=== PATIENT | female | born 1955 | race Two or more races ===

== ENCOUNTER 2018-10-30 08:59 | Inpatient (IN) | payer MEDICAID ==
[~2018-10-30] VITALS: Ht 157.5 cm; Wt 63.5 kg
--- NOTE | 2018-10-30 09:12 | Emergency Room Report ---
History of Present Illness General Chief Complaint: Dyspnea/Respdistress Source: Patient Present Illness HPI Patient presents with dyspnea. She was transported by EMS. Is a tracheostomy. The patient is complains of also left arm pain at this time. She is extremely anxious and unable to give a full history at the moment. She also had neck surgery. Further history came from her surgeon. Apparently she recently underwent neck resection for thyroid cancer. 2 of her parathyroids were retained. Apparently they were nonfunctional at discharge and she was discharged on calcitonin and calcium. According to the surgeon she has been noncompliant with these medications. She was discharged with a calcium of 7.4. Because of the extensive resection the tracheostomy was less than place. The family denies any fevers or productive cough. She has had some mild phlegm production via the tracheostomy. The patient denies chest pain but does complain of left arm pain. She also feels her hands are stuck in a contracted position that occurred just prior to that respiratory difficulty also. No leg edema or calf pain. No nausea, vomiting, diarrhea or dysuria. No rashes. The neck wounds are healing without difficulty. Allergies: Coded Allergies: No Known Allergies (Unverified , 10/30/18) Patient History Limited by: medical condition Past Medical History: see triage record Past Surgical History: other - Thyroid cancer resection with retention of parathyroid glands x2. Social History: Denies: smoking, alcohol use, drug use Social History Narrative With family Now: No Reviewed Nursing Documentation: PMH: Agreed; PSxH: Agreed Nursing Documentation-PMH Past Medical History: No History, Except For Hx Cancer: Yes - throat Review of Systems All Other Systems: limited Physical Exam Vital Signs Date Time Temp Pulse Resp B/P (MAP) Pulse Ox O2 Delivery O2 Flow Rate FiO2 10/30/18 08:54 98.4 87 20 117/54 99 Trach Collar Sp02 EP Interpretation: reviewed, normal General Appearance: alert, moderate distress Eyes: bilateral eye normal inspection, bilateral eye PERRL, bilateral eye EOMI ENT: normal pharynx Neck: other - Surgical scars, tracheotomy - Patent Respiratory: chest non-tender, lungs clear, normal breath sounds Cardiovascular #1: no edema, tachycardia Cardiovascular #2: 1+ radial (L) Gastrointestinal: non tender, soft, decreased bowel sounds Genitourinary: no CVA tenderness Musculoskeletal: back normal, no calf tenderness Neurologic: alert, umbrella tipper machine III-XII nml as tested, DTRs symmetric, other - Carpal pedal spasms Psychiatric: anxious Skin: other - Surgical scars Procedures Critical Care Time Critical Care Time Total Critical Care Time: 30 min bedside evaluation and treatment excludes procedures (EKG). Reason for critical care: acute dyspnea, symptomatic hypocalcemia, calcium replacement Possible complications: hypotension, hypertension, MD, shock, arrhythmias, metabolic acidosis, end organ damage, respiratory failure. Interventions: ativan, calcium gluconate, discussion with surgeon and admitting MD Course: Patient presented with carpal pedal spasm and respiratory distress. Ativan ordered with improvement. Broad differential. Calcium returns low. Discussion with surgeon reveals probable hypoparathyroidism post operatively. Calcium replacement ordered. Repeat exam with suctioning of tracheostomy. Discussion with family. Tolerating calcium replacement without difficulty. Consultations: nursing staff, EMS, family, neck surgeon, admitting MD, RT Performed by: Dr. Silverman Tolerated well condition = serious Medical Decision Making Diagnostic Impression: Primary Impression: Hypocalcemia Additional Impressions: Status post thyroid cancer resection Tracheostomy in place Hypoparathyroidism Qualified Codes: E20.8 - Other hypoparathyroidism ER Course Patient presents with severe dyspnea with carpopedal spasms and left arm pain. Differential includes acute myocardial infarction, anxiety, electrolyte imbalance amongst others. Is no wheezing and also her O2 sat is 100% on room air. The latter makes pulmonary embolus less likely. The patient will be evaluated with EKG, chest x-ray and labs. The patient will initially be treated with Ativan. There is no bronchospasm at this time and breathing treatments are not indicated. As she starts to feel better more history will be obtained. EKG without injury. CXR clear (trach). Calcium low. Ordering ionized calcium. Improved with ativan. No more pain and muscles have relaxed. She states she was in the hospital 2 weeks ago. After discussion with surgeon the etiology of the hypercalcemia is postsurgical hypoparathyroidism. Ionized calcium is low. (Surgeon: Edin Granger ) 4 g of calcium gluconate is ordered IV. Discussed findings with patient and family and treatment plan. There is minimal phlegm suctioned out of the tracheostomy site. There is no more respiratory distress. Patient improved and admitted to telemetry . Laboratory Tests Test 10/30/18 09:30 White Blood Count 7.1 K/UL (4.8-10.8) Red Blood Count 3.64 M/UL (4.20-5.40) L Hemoglobin 10.6 G/DL (12.0-16.0) L Hematocrit 31.8 % (37.0-47.0) L Mean Corpuscular Volume 87 FL (80-99) Mean Corpuscular Hemoglobin 29.1 PG (27.0-31.0) Mean Corpuscular Hemoglobin Concent 33.3 G/DL (32.0-36.0) Red Cell Distribution Width 14.2 % (11.6-14.8) Platelet Count 306 K/UL (150-450) Mean Platelet Volume 6.9 FL (6.5-10.1) Neutrophils (%) (Auto) 65.0 % (45.0-75.0) Lymphocytes (%) (Auto) 21.6 % (20.0-45.0) Monocytes (%) (Auto) 9.7 % (1.0-10.0) Eosinophils (%) (Auto) 2.5 % (0.0-3.0) Basophils (%) (Auto) 1.1 % (0.0-2.0) Prothrombin Time 11.1 SEC (9.30-11.50) Prothrombin Time INR 1.1 (0.9-1.1) PTT 26 SEC (23-33) Urine Color Pale yellow Urine Appearance Clear Urine pH 8 (4.5-8.0) Urine Specific [place] 1.005 (1.005-1.035) Urine Protein 2+ (NEGATIVE) H Urine Glucose (UA) Negative (NEGATIVE) Urine Ketones Negative (NEGATIVE) Urine Blood Negative (NEGATIVE) Urine Nitrite Negative (NEGATIVE) Urine Bilirubin Negative (NEGATIVE) Urine Urobilinogen Normal MG/DL (0.0-1.0) Urine Leukocyte Esterase 1+ (NEGATIVE) H Urine RBC 0-2 /HPF (0 - 2) Urine WBC 0-2 /HPF (0 - 2) Urine Squamous Epithelial Cells Few /LPF (NONE/OCC) Urine Bacteria Occasional /HPF (NONE) Sodium Level 144 MMOL/L (136-145) Potassium Level 4.1 MMOL/L (3.5-5.1) Chloride Level 107 MMOL/L (98-107) Carbon Dioxide Level 24 MMOL/L (21-32) Anion Gap 13 mmol/L (5-15) Blood Urea Nitrogen 20 mg/dL (7-18) H Creatinine 0.9 MG/DL (0.55-1.30) Estimate Glomerular Filtration Rate > 60 mL/min (>60) Glucose Level 100 MG/DL (74-106) Calcium Level 6.4 MG/DL (8.5-10.1) L Ionized Calcium (Measured) 0.70 mmol/L (1.10-1.35) *L Magnesium Level 2.1 MG/DL (1.8-2.4) Total Bilirubin 0.4 MG/DL (0.2-1.0) Aspartate Amino Transferase (AST) 41 U/L (15-37) H Alanine Aminotransferase (ALT) 44 U/L (12-78) Alkaline Phosphatase 113 U/L (46-116) Total Creatine Kinase 131 U/L (26-308) Troponin I 0.000 ng/mL (0.000-0.056) Pro-B-Type Natriuretic Peptide 60 pg/mL (0-125) Total Protein 7.8 G/DL (6.4-8.2) Albumin 3.6 G/DL (3.4-5.0) Globulin 4.2 g/dL Albumin/Globulin Ratio 0.9 (1.0-2.7) L Urine Opiates Screen Negative (NEGATIVE) Urine Barbiturates Screen Negative (NEGATIVE) Phencyclidine (PCP) Screen Negative (NEGATIVE) Urine Amphetamines Screen Negative (NEGATIVE) Urine Benzodiazepines Screen Negative (NEGATIVE) Urine Cocaine Screen Negative (NEGATIVE) Urine Marijuana (THC) Screen Negative (NEGATIVE) EKG Diagnostic Results Rate: normal Rhythm: NSR ST Segments: no acute changes Rhythm Strip Diag. Results EP Interpretation: yes Rhythm: NSR, no PVC's, no ectopy Chest X-Ray Diagnostic Results Chest X-Ray Diagnostic Results : Chest X-Ray Ordered: Yes # of Views/Limited/Complete: 1 View Indication: Shortness of Breath EP Interpretation: Yes Interpretation: no consolidation, no effusion, no pneumothorax, other - Tracheostomy Impression: Other Electronically Signed by: Electronically signed by Jose Silverman MD Last Vital Signs Date Time Temp Pulse Resp B/P (MAP) Pulse Ox O2 Delivery O2 Flow Rate FiO2 10/30/18 20:38 103 16 93 Trach Collar 6.0 28 10/30/18 16:00 97.4 133/83 (100) Status: improved Disposition: ADMITTED INPATIENT Condition: Serious Jose Silverman MD Oct 30, 2018 09:12
[2018-10-30] MEDS ORDERED: LORazepam Inj 2mg/ml 1ml IV ONE (09:15)
[2018-10-30 09:36] LABS: BASOPHILS % (AUTO) 1.1 % (0.0-2.0); EOSINOPHILS % (AUTO) 2.5 % (0.0-3.0); HEMATOCRIT 31.8 % (37.0-47.0); HEMOGLOBIN 10.6 G/DL (12.0-16.0); LYMPHOCYTES % (AUTO) 21.6 % (20.0-45.0); MEAN CORPUSCULAR VOLUME 87 FL (80-99); MONOCYTES % (AUTO) 9.7 % (1.0-10.0); PLATELET COUNT 306 K/UL (150-450); RED BLOOD COUNT 3.64 M/UL (4.20-5.40); RED CELL DISTRIBUTION WIDTH 14.2 % (11.6-14.8); WHITE BLOOD COUNT 7.1 K/UL (4.8-10.8)
[2018-10-30 09:38] VITALS: BP 115/85
[2018-10-30 09:40] LABS: APPEARANCE,URINE CLEAR; BILIRUBIN, URINE NEGATIVE (NEGATIVE); COLOR,URINE PALE YELLOW; GLUCOSE, URINE (UA) NEGATIVE (NEGATIVE); KETONES,URINE NEGATIVE (NEGATIVE); LEUKOCYTE ESTERASE ,URINE 1+ (NEGATIVE); NITRITE,URINE NEGATIVE (NEGATIVE); PH,URINE 8 (4.5-8.0); PROTEIN,URINE 2+ (NEGATIVE); UROBILINOGEN,URINE NORMAL MG/DL (0.0-1.0)
[2018-10-30 09:42] LABS: INR 1.1 (0.9-1.1)
[2018-10-30 09:45] LABS: ANION GAP 13 mmol/L (5-15); BLOOD UREA NITROGEN 20 mg/dL (7-18); CALCIUM 6.4 MG/DL (8.5-10.1); CARBON DIOXIDE 24 MMOL/L (21-32); CHLORIDE 107 MMOL/L (98-107); CREATININE 0.9 MG/DL (0.55-1.30); POTASSIUM 4.1 MMOL/L (3.5-5.1); SODIUM 144 MMOL/L (136-145)
[2018-10-30 09:58] LABS: ALANINE AMINOTRANSFERASE 44 U/L (12-78); ALBUMIN 3.6 G/DL (3.4-5.0); ALBUMIN/GLOBULIN RATIO 0.9 (1.0-2.7); ALKALINE PHOSPHATASE 113 U/L (46-116); ASPARTATE AMINO TRANSFERASE 41 U/L (15-37); BILIRUBIN,TOTAL 0.4 MG/DL (0.2-1.0); CREATINE KINASE 131 U/L (26-308)
--- NOTE | 2018-10-30 09:59 | Diagnostic Imaging Report ---
Indication: Dyspnea Technique: One view of the chest Comparison: none Findings: Lung pleural and spaces are clear. There is a tracheostomy. Heart size is upper limits of normal Impression: No acute process
[2018-10-30] MEDS ORDERED: NS IV ONE (11:15)
[2018-10-30] MEDS ORDERED: CALCIUM GLUCONATE IV ONE (11:15)
[2018-10-30 11:39] VITALS: BP 114/87
[2018-10-30 13:15] VITALS: BP 118/82
[2018-10-30] MEDS ORDERED: Nitroglycerin Subl 0.4mg tab SL PRN (13:15)
[2018-10-30] MEDS ORDERED: Promethazine/Codeine 5ml UD ORAL PRN (13:15)
[2018-10-30] MEDS ORDERED: Ketorolac 30mg Inj IV PRN (13:15)
[2018-10-30] MEDS ORDERED: Morphine Sulfate 2mg/ml Inj(IV/IM USE ONLY) IVP PRN (13:15)
[2018-10-30] MEDS ORDERED: LORazepam Inj 2mg/ml 1ml IV PRN (13:15)
[2018-10-30] MEDS ORDERED: Piperacillin/Tazobactam 2.25 GM in D5W 55 ML IV SCH (14:00)
[2018-10-30] MEDS: Albuterol/Ipratropium 3ml neb HHN PRN ×2 (14:50→20:26)
[2018-10-30] MEDS: Zosyn 3.375gm q8h **Extended infusion IVPB SCH ×4 (15:45→22:20)
[2018-10-30] MEDS: Solu-MEDROL 125mg Inj IV SCH ×2 (15:45→20:39)
[2018-10-30 16:00] VITALS: BP 133/83
[2018-10-30] MEDS ORDERED: SYNTHROID100 MCG ORAL (19:50)
[2018-10-30] MEDS ORDERED: ROCATROL0.25 MCG ORAL (19:50)
[2018-10-30 20:00] VITALS: BP 146/100
[2018-10-30] MEDS ORDERED: Morphine Sulfate 4mg/ml Inj (IV USE ONLY) IVP PRN (20:15)
[2018-10-30] MEDS: Theophylline ER 100mg ORAL SCH (20:39)
[2018-10-30] MEDS: Heparin 5000 units/ml inj SUBQ SCH (20:41)
[2018-10-31] VITALS: BP 112/77
[2018-10-31] MEDS: Solu-MEDROL 125mg Inj IV SCH ×2 (02:16→08:46)
[2018-10-31 04:00] VITALS: BP 124/82
[2018-10-31] MEDS: Albuterol/Ipratropium 3ml neb HHN PRN (04:30)
[2018-10-31] MEDS: Zosyn 3.375gm q8h **Extended infusion IVPB SCH ×6 (05:16→21:04)
[2018-10-31 07:33] LABS: ALANINE AMINOTRANSFERASE 35 U/L (12-78); ALBUMIN 3.2 G/DL (3.4-5.0); ALBUMIN/GLOBULIN RATIO 0.7 (1.0-2.7); ALKALINE PHOSPHATASE 110 U/L (46-116); ANION GAP 13 mmol/L (5-15); ASPARTATE AMINO TRANSFERASE 25 U/L (15-37); BILIRUBIN,TOTAL 0.4 MG/DL (0.2-1.0); BLOOD UREA NITROGEN 20 mg/dL (7-18); CALCIUM 5.8 MG/DL (8.5-10.1); CARBON DIOXIDE 22 MMOL/L (21-32); CHLORIDE 107 MMOL/L (98-107); CREATININE 0.9 MG/DL (0.55-1.30); POTASSIUM 3.5 MMOL/L (3.5-5.1); SODIUM 142 MMOL/L (136-145)
[2018-10-31 08:00] VITALS: BP 136/85
[2018-10-31] MEDS: Calcitriol 0.25mcg Cap ORAL SCH ×2 (08:45→17:47)
[2018-10-31] MEDS: Theophylline ER 100mg ORAL SCH (08:46)
[2018-10-31] MEDS: Heparin 5000 units/ml inj SUBQ SCH ×2 (08:49→21:05)
[2018-10-31] MEDS ORDERED: Calcitriol 0.25mcg Cap ORAL SCH (09:00)
[2018-10-31 10:06] LABS: PHOSPHORUS 5.4 MG/DL (2.5-4.9)
[2018-10-31] MEDS ORDERED: Calcium Gluconate 10% 2 GM in NS 110 ML IVPB ONE (11:30)
--- NOTE | 2018-10-31 11:46 | Consultation ---
History of Present Illness General Chief Complaint: Dyspnea/Respdistress Present Illness HPI 63 year old female with hx of neck resection for thyroid cancer, s/p tracheostomy brought to ER with CC of dyspnea and left arm pain and cramps. She was extremely anxious and unable to give a full history at the moment. She was discharged recently from hospital after her surgery on calcitonin and calcium. According to the surgeon she has been noncompliant with these medications. The family denies any fevers or productive cough. She has had some mild phlegm production via the tracheostomy. The patient denies chest pain but does complain of left arm pain. She also feels her hands are stuck in a contracted position that occurred just prior to that respiratory difficulty also. Her calcium was critically low and she is admitted to telemetry. Allergies: Coded Allergies: No Known Allergies (Unverified , 10/30/18) Medication History Scheduled Calcitriol (Calcitriol), 0.25 MCG ORAL BID, (Reported) Levothyroxine Sodium* (Synthroid*), 100 MCG ORAL DAILY, (Reported) Patient History Healthcare decision maker Resuscitation status Full Code Advanced Directive on File Past Medical/Surgical History Past Medical/Surgical History: (1) Hypoparathyroidism (2) Tracheostomy in place Review of Systems All Other Systems: negative except mentioned in HPI Physical Exam General Appearance: WD/WN Lines, tubes and drains: peripheral, trach HEENT: normocephalic, anicteric Neck: non-tender, normal alignment Respiratory/Chest: lungs clear, normal breath sounds Breasts: no masses Cardiovascular/Chest: normal peripheral pulses, regular rhythm Last 24 Hour Vital Signs Date Time Temp Pulse Resp B/P (MAP) Pulse Ox O2 Delivery O2 Flow Rate FiO2 10/31/18 09:24 96 Trach Collar 6.0 28 10/31/18 09:24 96 18 Trach Collar 6.0 28 10/31/18 09:24 Trach Collar 6.0 28 10/31/18 09:00 Room Air 10/31/18 08:00 107 10/31/18 08:00 97.9 116 18 136/85 (102) 97 10/31/18 04:53 92 16 94 Trach Collar 6.0 28 10/31/18 04:30 83 16 93 Trach Collar 6.0 28 10/31/18 04:18 94 10/31/18 04:00 98.2 94 19 124/82 (96) 95 10/31/18 00:30 Trach Collar 6.0 28 10/31/18 00:30 96 Trach Collar 6.0 28 10/31/18 00:00 98.1 101 18 112/77 (89) 94 10/30/18 23:52 94 10/30/18 22:38 Room Air 10/30/18 20:38 103 16 93 Trach Collar 6.0 28 10/30/18 20:26 104 16 94 Trach Collar 6.0 28 10/30/18 20:00 97.9 103 18 146/100 (115) 96 10/30/18 19:50 95 Trach Collar 6.0 28 10/30/18 19:50 Trach Collar 6.0 28 10/30/18 19:50 102 16 Trach Collar 6.0 28 10/30/18 19:29 109 10/30/18 16:00 97.4 100 18 133/83 (100) 96 10/30/18 15:43 97 10/30/18 15:05 96 Trach Collar 6.0 28 10/30/18 15:05 Trach Collar 6.0 28 10/30/18 15:01 99 20 99 Trach Collar 6.0 28 10/30/18 14:53 97 22 98 Room Air 21 10/30/18 14:53 94 20 Trach Collar 6.0 28 10/30/18 13:34 Trach Collar 10/30/18 13:24 92 10/30/18 13:15 98.2 92 18 118/82 (94) 97 10/30/18 13:00 98.2 75 20 114/87 98 Room Air Intake and Output 10/30/18 10/31/18 18:59 06:59 Intake Total 240 ml 110 ml Balance 240 ml 110 ml Intake Oral 240 ml IV Total 110 ml # Voids 1 1 Laboratory Tests Test 10/31/18 05:25 Sodium Level 142 MMOL/L (136-145) Potassium Level 3.5 MMOL/L (3.5-5.1) Chloride Level 107 MMOL/L (98-107) Carbon Dioxide Level 22 MMOL/L (21-32) Anion Gap 13 mmol/L (5-15) Blood Urea Nitrogen 20 mg/dL (7-18) H Creatinine 0.9 MG/DL (0.55-1.30) Estimat Glomerular Filtration Rate > 60 mL/min (>60) Glucose Level 167 MG/DL (74-106) H Calcium Level 5.8 MG/DL (8.5-10.1) *L Calcium (Send out) Pending Phosphorus Level 5.4 MG/DL (2.5-4.9) H Magnesium Level 1.8 MG/DL (1.8-2.4) Total Bilirubin 0.4 MG/DL (0.2-1.0) Aspartate Amino Transf (AST/SGOT) 25 U/L (15-37) Alanine Aminotransferase (ALT/SGPT) 35 U/L (12-78) Alkaline Phosphatase 110 U/L (46-116) Total Protein 7.6 G/DL (6.4-8.2) Albumin 3.2 G/DL (3.4-5.0) L Globulin 4.4 g/dL Albumin/Globulin Ratio 0.7 (1.0-2.7) L Thyroid Stimulating Hormone (TSH) 5.453 uiU/mL (0.358-3.740) Free Thyroxine 1.10 NG/DL (0.76-1.46) Parathyroid Hormone (Intact) Pending Height (Feet): 5 Height (Inches): 2.00 Weight (Pounds): 140 Medications Current Medications Medications (Trade) Dose Ordered Sig/Rico Route PRN Reason Start Time Stop Time Status Last Admin Dose Admin Albuterol/ Ipratropium (Albuterol/ Ipratropium) 3 ml Q4H PRN HHN dyspnea 10/30/18 13:15 11/04/18 13:14 10/31/18 04:30 Calcitriol (Rocatrol) 0.5 mcg BID ORAL 10/31/18 09:00 11/30/18 08:59 10/31/18 08:45 Calcium Carbonate (Os-Den) 2,500 mg THREE TIMES A DAY ORAL 10/31/18 09:00 11/30/18 08:59 10/31/18 08:46 Calcium Gluconate 1 gm/Sodium Chloride 120 ml @ 240 mls/hr Q6HR IVPB 10/31/18 18:00 11/30/18 11:59 Calcium Gluconate 2 gm/Sodium Chloride 130 ml @ 130 mls/hr ONCE ONCE IVPB 10/31/18 11:30 10/31/18 12:29 10/31/18 11:04 Dextrose (Dextrose 50%) 25 ml Q30M PRN IV Hypoglycemia 10/30/18 13:15 11/29/18 13:14 Dextrose (Dextrose 50%) 50 ml Q30M PRN IV Hypoglycemia 10/30/18 13:15 11/29/18 13:14 Heparin Sodium (Porcine) (Heparin 5000 units/ml) 5,000 units EVERY 12 HOURS SUBQ 10/30/18 21:00 11/29/18 20:59 10/31/18 08:49 Levothyroxine Sodium (Synthroid) 100 mcg ACBREAKFAST ORAL 10/31/18 06:30 11/30/18 06:29 10/31/18 06:23 Lorazepam (Ativan 2mg/ml 1ml) 0.5 mg Q4H PRN IV For Anxiety 10/30/18 13:15 11/06/18 13:14 Methylprednisolone Sodium Succinate (Solu-MEDROL) 60 mg Q6H IV 10/30/18 14:00 11/29/18 13:59 10/31/18 08:46 Morphine Sulfate (Morphine Sulfate) 2 mg Q4H PRN IVP severe pain 7-10 10/30/18 20:15 11/06/18 13:14 Nitroglycerin (Ntg) 0.4 mg Q5M X 3 DOSES PRN SL Prn Chest Pain 10/30/18 13:15 11/29/18 13:14 Ondansetron HCl (Zofran) 4 mg Q6H PRN IVP Nausea & Vomiting 10/30/18 13:15 11/29/18 13:14 Piperacillin Sod/ Tazobactam Sod 3.375 gm/Sodium Chloride 110 ml @ 27.5 mls/hr EVERY 8 HOURS IVPB 10/30/18 14:00 11/04/18 13:59 10/31/18 05:16 Promethazine HCl/ Codeine (Phenergan with Codeine) 5 ml Q6H PRN ORAL cough 10/30/18 13:15 11/29/18 13:14 Temazepam (Restoril) 15 mg HSPRN PRN ORAL Insomnia 10/30/18 13:15 11/06/18 13:14 Theophylline (Abel-Dur) 100 mg EVERY 12 HOURS ORAL 10/30/18 21:00 11/29/18 20:59 10/31/18 08:46 Assessment/Plan Problem List: (1) Hypocalcemia ICD Codes: E83.51 - Hypocalcemia SNOMED: 4801311 (2) Tracheostomy in place ICD Codes: Z93.0 - Tracheostomy status SNOMED: 019095806 (3) Hypoparathyroidism ICD Codes: E20.9 - Hypoparathyroidism, unspecified SNOMED: 93825488 Qualifiers: Qualified Codes: E20.8 - Other hypoparathyroidism Diagnosis [place] I: Ca supplement Nephrology to see endocrinology to see symptomatic treatment Jorge Borjas MD Oct 31, 2018 11:46
--- NOTE | 2018-10-31 12:01 | Consultation ---
Consult Note Consult Note asked to eval for low Ca Chief Complaint: Dyspnea/Respdistress HPI Patient presents with dyspnea. She was transported by EMS. Is a tracheostomy. The patient is complains of also left arm pain at this time. She is extremely anxious and unable to give a full history at the moment. She also had neck surgery. Further history came from her surgeon. Apparently she recently underwent neck resection for thyroid cancer. 2 of her parathyroids were retained. Apparently they were nonfunctional at discharge and she was discharged on calcitonin and calcium. According to the surgeon she has been noncompliant with these medications. She was discharged with a calcium of 7.4. Because of the extensive resection the tracheostomy was less than place. The family denies any fevers or productive cough. She has had some mild phlegm production via the tracheostomy. The patient denies chest pain but does complain of left arm pain. She also feels her hands are stuck in a contracted position that occurred just prior to that respiratory difficulty also. No leg edema or calf pain. No nausea, vomiting, diarrhea or dysuria. No rashes. The neck wounds are healing without difficulty. No Known Allergies (Unverified , 10/30/18) Limited by: medical condition Past Medical History: see triage record Past Surgical History: other - Thyroid cancer resection with retention of parathyroid glands x2. Social History: Denies: smoking, alcohol use, drug use Social History Narrative With family Now: No Reviewed Nursing Documentation: PMH: Agreed; PSxH: Agreed Past Medical History: No History, Except For Hx Cancer: Yes - throat examined data reviewed Assessment/Plan s/p Throat surgery for thyroid cancer HypoParathyroidism HypoCalcemia Tracheostomy in place Anemia IV Den gluc PO Ca PO Vit D 25 & 1,25 monitor Ca Phos Mag per orders Franklin Gardner MD Oct 31, 2018 12:01
[2018-10-31 12:24] VITALS: BP 127/80
[2018-10-31] MEDS ORDERED: Vitamin D 50,000 units cap ORAL SCH (13:00)
--- NOTE | 2018-10-31 14:13 | Consultation ---
History of Present Illness General Date patient seen: Oct 31, 2018 Reason for Hospitalization: Dyspnea/Respdistress Present Illness HPI 63 year old female with multiple medical comorbidities, hx of tracheostomy, hx of recent thyroidectomy presented with SOB and respiratory insufficiency. states weak and shaking. no n/v/f/c. per report, she had total thyroidectomy with removal of 2 parathyroids and 2 post op non functional thyroids. has been or oral calcium supplementation but non compliant with meds. became hypocalcemic. on admission calcium levels low. was given IV calcium and states feels much better now. surgery called to evaluate and assist with care. patient seen, chart reviewed, patient examined. family at bedside Allergies: Coded Allergies: No Known Allergies (Unverified , 10/30/18) Medication History Scheduled Calcitriol (Calcitriol), 0.25 MCG ORAL BID, (Reported) Levothyroxine Sodium* (Synthroid*), 100 MCG ORAL DAILY, (Reported) Patient History History Provided By: Patient, Medical Record, PMD Healthcare decision maker Resuscitation status Full Code Advanced Directive on File Past Medical/Surgical History Past Medical/Surgical History: (1) Hypoparathyroidism (2) Tracheostomy in place (3) Hypocalcemia Review of Systems Review of Symptoms General ROS: no weight loss or fever Psychological ROS: no depression or mood changes, no memory loss Ophthalmic ROS: no visual changes or eye irritation ENT ROS: no nasal congestion, hearing loss, dizziness Allergy and Immunology ROS: no allergic symptoms or urticaria Hematological and Lymphatic ROS: no swollen glands, unusual bleeding or bruising Endocrine ROS: no polyuria, polydipsia, weight changes, temperature intolerance Respiratory ROS: no cough, shortness of breath, or wheezing Cardiovascular ROS: no chest pain or dyspnea on exertion Gastrointestinal ROS: denies abdominal pain, no bright red blood in stool. Musculoskeletal ROS: no myalgias or arthralgias Neurological ROS: no TIA or stroke symptoms Dermatological ROS: no new or changing skin lesions, rashes or pruritis Physical Exam Physical Exam General appearance: alert, cooperative, no distress, appears stated age Head: Normocephalic, without obvious abnormality, atraumatic Eyes: conjunctivae/corneas clear. PERRL, EOM's intact. Fundi benign Throat: Lips, mucosa, and tongue normal. Teeth and gums normal Neck: supple, symmetrical, trachea midline with trach in place. superior to that here is a healing recent thyroidectomy incision noted with vickie in place , no adenopathy, thyroid: not enlarged, symmetric, no tenderness/mass/nodules, no carotid bruit and no JVD Lungs: clear to auscultation bilaterally Heart: regular rate and rhythm, S1, S2 normal, no murmur, click, rub or gallop Abdomen: soft, non-tender. Bowel sounds normal. No masses, no organomegaly Extremities: extremities normal, atraumatic, no cyanosis or edema Pulses: 2+ and symmetric Skin: Skin color, texture, turgor normal. No rashes or lesions Neurologic: Grossly normal Last 24 Hour Vital Signs Date Time Temp Pulse Resp B/P (MAP) Pulse Ox O2 Delivery O2 Flow Rate FiO2 10/31/18 13:05 Trach Collar 6.0 28 10/31/18 13:05 96 Trach Collar 6.0 28 10/31/18 12:24 97.9 92 20 127/80 (96) 96 10/31/18 12:00 89 10/31/18 09:24 96 Trach Collar 6.0 28 10/31/18 09:24 96 18 Trach Collar 6.0 28 10/31/18 09:24 Trach Collar 6.0 28 10/31/18 09:00 Room Air 10/31/18 08:00 107 10/31/18 08:00 97.9 116 18 136/85 (102) 97 10/31/18 06:45 96 Trach Collar 6.0 28 10/31/18 06:45 Trach Collar 6.0 28 10/31/18 04:53 92 16 94 Trach Collar 6.0 28 10/31/18 04:30 83 16 93 Trach Collar 6.0 28 10/31/18 04:18 94 10/31/18 04:00 98.2 94 19 124/82 (96) 95 10/31/18 00:30 Trach Collar 6.0 28 10/31/18 00:30 96 Trach Collar 6.0 28 10/31/18 00:00 98.1 101 18 112/77 (89) 94 10/30/18 23:52 94 10/30/18 22:38 Room Air 10/30/18 20:38 103 16 93 Trach Collar 6.0 28 10/30/18 20:26 104 16 94 Trach Collar 6.0 28 10/30/18 20:00 97.9 103 18 146/100 (115) 96 10/30/18 19:50 95 Trach Collar 6.0 28 10/30/18 19:50 Trach Collar 6.0 28 10/30/18 19:50 102 16 Trach Collar 6.0 28 10/30/18 19:29 109 10/30/18 16:00 97.4 100 18 133/83 (100) 96 10/30/18 15:43 97 10/30/18 15:05 96 Trach Collar 6.0 28 10/30/18 15:05 Trach Collar 6.0 28 10/30/18 15:01 99 20 99 Trach Collar 6.0 28 10/30/18 14:53 97 22 98 Room Air 21 10/30/18 14:53 94 20 Trach Collar 6.0 28 Intake and Output 10/30/18 10/31/18 19:00 07:00 Intake Total 240 ml 110 ml Balance 240 ml 110 ml Intake Oral 240 ml IV Total 110 ml # Voids 1 1 Laboratory Tests Test 10/31/18 05:25 Sodium Level 142 MMOL/L (136-145) Potassium Level 3.5 MMOL/L (3.5-5.1) Chloride Level 107 MMOL/L (98-107) Carbon Dioxide Level 22 MMOL/L (21-32) Anion Gap 13 mmol/L (5-15) Blood Urea Nitrogen 20 mg/dL (7-18) H Creatinine 0.9 MG/DL (0.55-1.30) Estimat Glomerular Filtration Rate > 60 mL/min (>60) Glucose Level 167 MG/DL (74-106) H Calcium Level 5.8 MG/DL (8.5-10.1) *L Calcium (Send out) Pending Phosphorus Level 5.4 MG/DL (2.5-4.9) H Magnesium Level 1.8 MG/DL (1.8-2.4) Total Bilirubin 0.4 MG/DL (0.2-1.0) Aspartate Amino Transf (AST/SGOT) 25 U/L (15-37) Alanine Aminotransferase (ALT/SGPT) 35 U/L (12-78) Alkaline Phosphatase 110 U/L (46-116) Total Protein 7.6 G/DL (6.4-8.2) Albumin 3.2 G/DL (3.4-5.0) L Globulin 4.4 g/dL Albumin/Globulin Ratio 0.7 (1.0-2.7) L Thyroid Stimulating Hormone (TSH) 5.453 uiU/mL (0.358-3.740) Free Thyroxine 1.10 NG/DL (0.76-1.46) Parathyroid Hormone (Intact) Pending Height (Feet): 5 Height (Inches): 2.00 Weight (Pounds): 140 Medications Current Medications Medications (Trade) Dose Ordered Sig/Rico Route PRN Reason Start Time Stop Time Status Last Admin Dose Admin Albuterol/ Ipratropium (Albuterol/ Ipratropium) 3 ml Q4H PRN HHN dyspnea 10/30/18 13:15 11/04/18 13:14 10/31/18 04:30 Calcitriol (Rocatrol) 0.5 mcg BID ORAL 10/31/18 09:00 11/30/18 08:59 10/31/18 08:45 Calcium Carbonate (Os-Den) 2,500 mg THREE TIMES A DAY ORAL 10/31/18 09:00 11/30/18 08:59 10/31/18 08:46 Calcium Gluconate 1 gm/Sodium Chloride 120 ml @ 240 mls/hr Q6HR IVPB 10/31/18 18:00 11/30/18 11:59 Dextrose (Dextrose 50%) 25 ml Q30M PRN IV Hypoglycemia 10/30/18 13:15 11/29/18 13:14 Dextrose (Dextrose 50%) 50 ml Q30M PRN IV Hypoglycemia 10/30/18 13:15 11/29/18 13:14 Ergocalciferol (Drisdol) 50,000 intlu QWEEK ORAL 10/31/18 13:00 11/30/18 12:59 Heparin Sodium (Porcine) (Heparin 5000 units/ml) 5,000 units EVERY 12 HOURS SUBQ 10/30/18 21:00 11/29/18 20:59 10/31/18 08:49 Levothyroxine Sodium (Synthroid) 100 mcg ACBREAKFAST ORAL 10/31/18 06:30 11/30/18 06:29 10/31/18 06:23 Lorazepam (Ativan 2mg/ml 1ml) 0.5 mg Q4H PRN IV For Anxiety 10/30/18 13:15 11/06/18 13:14 Methylprednisolone Sodium Succinate (Solu-MEDROL) 60 mg DAILY IV 11/01/18 09:00 11/29/18 13:59 Morphine Sulfate (Morphine Sulfate) 2 mg Q4H PRN IVP severe pain 7-10 10/30/18 20:15 11/06/18 13:14 Nitroglycerin (Ntg) 0.4 mg Q5M X 3 DOSES PRN SL Prn Chest Pain 10/30/18 13:15 11/29/18 13:14 Ondansetron HCl (Zofran) 4 mg Q6H PRN IVP Nausea & Vomiting 10/30/18 13:15 11/29/18 13:14 Piperacillin Sod/ Tazobactam Sod 3.375 gm/Sodium Chloride 110 ml @ 27.5 mls/hr EVERY 8 HOURS IVPB 10/30/18 14:00 11/04/18 13:59 10/31/18 05:16 Promethazine HCl/ Codeine (Phenergan with Codeine) 5 ml Q6H PRN ORAL cough 10/30/18 13:15 11/29/18 13:14 Temazepam (Restoril) 15 mg HSPRN PRN ORAL Insomnia 10/30/18 13:15 11/06/18 13:14 Assessment/Plan Problem List: (1) Hypoparathyroidism Assessment & Plan: s/p thyroidectomy [address] 2 remain per report but non functional thus far presented with symptomatic hypocalcemia. given replacement and symptoms improved check calcium very few hrs replace with IV for now and oral as tolerated will follow with recs ICD Codes: E20.9 - Hypoparathyroidism, unspecified SNOMED: 20510864 Qualifiers: Qualified Codes: E20.8 - Other hypoparathyroidism (2) Tracheostomy in place ICD Codes: Z93.0 - Tracheostomy status SNOMED: 165887897 (3) Hypocalcemia ICD Codes: E83.51 - Hypocalcemia SNOMED: 6425908 Selvin Sanchez Oct 31, 2018 14:13
[2018-10-31 16:00] VITALS: BP 123/76
--- NOTE | 2018-10-31 16:02 | Cardiology Report ---
APPROVED REPORT EKG Measurement Heart [id number] MI [id number] Normal sinus rhythm Normal ECG
--- NOTE | 2018-10-31 17:45 | Consultation ---
DATE OF CONSULTATION: 10/31/2018 ENDOCRINOLOGY CONSULTATION CONSULTING PHYSICIAN: Isaac Parker M.D. REFERRING PHYSICIAN: Omer Matamoros D.O. REASON FOR CONSULTATION: Hypocalcemia. HISTORY OF PRESENT ILLNESS: The patient is a 63-year-old female with a history of thyroid cancer, status post thyroidectomy and tracheostomy at outside Hospital a couple of weeks ago. The patient was supposed to be on calcium supplement and calcitriol. According to the surgeon, who spoke with the ER physician, she was noncompliant and came with symptomatic hypocalcemia. The patient has been given IV calcium gluconate with some improvement. I was called to manage hypocalcemia. The patient is having productive cough without any fever. PAST MEDICAL HISTORY: Thyroid cancer, unknown type. PAST SURGICAL HISTORY: Total thyroidectomy with retention of the two parathyroid glands. SOCIAL HISTORY: No smoking, alcohol, or drug use. FAMILY HISTORY: Noncontributory. REVIEW OF SYSTEMS: As per HPI. MEDICATIONS: Reviewed and reconciled. LABORATORY VALUES: Sodium 144, potassium 4.1, chloride 107, bicarbonate 24, BUN 20, creatinine 0.9, calcium of 6.4. PHYSICAL EXAMINATION: GENERAL: She is awake. VITAL SIGNS: Temperature 98.2, pulse rate of 94, blood pressure 124/82, respiratory rate of 19. HEENT: Pupils are equal and reactive to light. Sclerae anicteric. NECK: Tracheostomy in place. HEART: Regular. LUNGS: Clear. ABDOMEN: Positive bowel sounds. EXTREMITIES: No clubbing, cyanosis, or edema. DIAGNOSES: 1. Postsurgical hypoparathyroidism. 2. Severe hypocalcemia. 3. Postsurgical hypothyroidism. 4. History of thyroid cancer of unknown type. PLAN: 1. Increase the calcitriol 0.25 to 0.5 mcg b.i.d. 2. Add oral calcium 2500 mg three times a day. 3. Continue levothyroxine 100 mcg in the morning on empty stomach, separate from calcium and other medications. 4. follow serum calcium. 5. Check PTH. 6. Check TSH and free T4. 7. Further adjustment according to the results. I will follow the patient during hospital stay. Thank you, Dr. Matamoros, for the courtesy of this consultation. Isaac Parker M.D. DR: HARPER JOB#: [id number] CC: KAILASH
[2018-10-31] MEDS: Calcium Gluconate 10% 1 GM in NS 110 ML IVPB SCH ×2 (17:47→23:33)
[2018-10-31] MEDS ORDERED: Calcium Gluconate 10% 1 GM in NS 110 ML IVPB SCH (18:00)
[2018-10-31 20:00] VITALS: BP 131/73
--- NOTE | 2018-10-31 20:00 | History and Physical Report ---
DATE OF ADMISSION: 10/30/2018 TIME SEEN: On 10/31/2018 at 2 p.m. CONSULTANTS: 1. Franklin Gardner M.D. 2. Jorge Borjas M.D. 3. Isaac Parker M.D. 4. Selvin Sanchez M.D. 5. Dr. Rehman. CHIEF COMPLAINT: Weakness, hypocalcemia, status post thyroid cancer resection. BRIEF HISTORY: This is a 63-year-old female, who lives at home and presents with increased weakness, was found to be hypocalcemic, admitted to telemetry floor for further care. Currently, calm, slight general pain, trach aerosol, no complaint. REVIEW OF SYSTEMS: No chest pain. Slight short of breath. No nausea, vomiting, or diarrhea. PAST MEDICAL HISTORY: Includes thyroid cancer, hypertension. PAST SURGICAL HISTORY: Recent thyroid resection and trach. MEDICATIONS: Include methylprednisolone, calcium, ergocalciferol, levothyroxine, heparin, theophylline, Zosyn, lorazepam, morphine, Zofran. ALLERGIES: Denies. SOCIAL HISTORY: No smoking. No alcohol. No intravenous drug abuse. FAMILY HISTORY: Noncontributory. PHYSICAL EXAMINATION: GENERAL: Calm in bed, oriented x3, slight short of breath with trach aerosol. VITAL SIGNS: Temperature is 97 degrees, pulse 92, respiratory rate 20, blood pressure 127/80. HEENT: Trach in place. CARDIOVASCULAR: No murmur. LUNGS: Distant and clear. ABDOMEN: Bowel sounds positive. Nontender. Nondistended. EXTREMITIES: No cyanosis, clubbing, or edema NEUROLOGIC: The patient moves all extremities, slightly weak. LABORATORY AND DIAGNOSTIC DATA: Labs at this time show hemoglobin and hematocrit 10.6/31. Calcium 5.8, BUN 20, glucose 167. TSH 5.45. INR is 1.1. Urine toxicology is negative. Urinalysis, 1+ leukocyte esterase. ASSESSMENT: 1. Hypocalcemia. 2. Anemia. 3. UTI. 4. Status post thyroid cancer resection. 5. Hypertension. PLAN: 1. Blood pressure and pain control. 2. Dietary to follow. 3. O2, pulmonary treatment, and trach care. 4. Replace calcium as per Nephrology. 5. Endocrine followup. 6. Antibiotics per Infectious Diseases. 7. We will continue to follow this patient. Omer Matamoros D.O. DR: Sammie JOB#: [id number] CC:
[2018-11-01] VITALS: BP 131/74
[2018-11-01 04:00] VITALS: BP 112/71
[2018-11-01] MEDS: Zosyn 3.375gm q8h **Extended infusion IVPB SCH ×2 (06:13)
[2018-11-01] MEDS: Calcium Gluconate 10% 1 GM in NS 110 ML IVPB SCH ×4 (06:14→23:21)
--- NOTE | 2018-11-01 06:31 | General Progress Note ---
Assessment/Plan Problem List: (1) Post-surgical hypothyroidism ICD Codes: E89.0 - Postprocedural hypothyroidism SNOMED: 15344725 (2) Post-surgical hypoparathyroidism ICD Codes: E89.2 - Postprocedural hypoparathyroidism SNOMED: 00645339 (3) Thyroid cancer ICD Codes: C73 - Malignant neoplasm of thyroid gland SNOMED: 162920066 (4) Tracheostomy in place ICD Codes: Z93.0 - Tracheostomy status SNOMED: 195294322 (5) Hypocalcemia ICD Codes: E83.51 - Hypocalcemia SNOMED: 5063165 Assessment/Plan: TSH is elevated - increase Levothyroxine to 125 mcg qam continue Calcitriol 0.5 mcg bid + Vit D + CaCO3 2500 mg bid follow serum Ca level Subjective ROS Limited/Unobtainable: Yes Allergies: Coded Allergies: No Known Allergies (Unverified , 10/30/18) Subjective events noted am labs pending Objective Last 24 Hour Vital Signs Date Time Temp Pulse Resp B/P (MAP) Pulse Ox O2 Delivery O2 Flow Rate FiO2 11/01/18 04:00 97.4 75 19 112/71 (85) 95 11/01/18 01:09 96 Trach Collar 6.0 28 11/01/18 01:09 Trach Collar 6.0 28 11/01/18 00:00 98.5 74 18 131/74 (93) 96 10/31/18 21:00 Trach Collar 10/31/18 20:00 97.7 84 19 131/73 (92) 95 10/31/18 20:00 89 10/31/18 19:06 96 Trach Collar 6.0 28 10/31/18 19:06 58 18 Trach Collar 6.0 28 10/31/18 19:06 Trach Collar 6.0 28 10/31/18 16:00 91 10/31/18 16:00 97.6 88 18 123/76 (92) 96 10/31/18 13:05 Trach Collar 6.0 28 10/31/18 13:05 96 Trach Collar 6.0 28 10/31/18 12:24 97.9 92 20 127/80 (96) 96 10/31/18 12:00 89 10/31/18 09:24 96 Trach Collar 6.0 28 10/31/18 09:24 96 18 Trach Collar 6.0 28 10/31/18 09:24 Trach Collar 6.0 28 10/31/18 09:00 Room Air 10/31/18 08:00 107 10/31/18 08:00 97.9 116 18 136/85 (102) 97 10/31/18 06:45 96 Trach Collar 6.0 28 10/31/18 06:45 Trach Collar 6.0 28 Intake and Output 10/31/18 11/01/18 19:00 07:00 Intake Total 360 ml 230 ml Balance 360 ml 230 ml Intake Oral 360 ml IV Total 230 ml # Voids 3 2 Height (Feet): 5 Height (Inches): 2.00 Weight (Pounds): 140 General Appearance: no apparent distress Neck: other - trach Cardiovascular: normal rate Respiratory/Chest: decreased breath sounds Abdomen: normal bowel sounds Pelvis: normal external exam Objective Current Medications Medications (Trade) Dose Ordered Sig/Rico Route PRN Reason Start Time Stop Time Status Last Admin Dose Admin Albuterol/ Ipratropium (Albuterol/ Ipratropium) 3 ml Q4H PRN HHN dyspnea 10/30/18 13:15 11/04/18 13:14 10/31/18 04:30 Calcitriol (Rocatrol) 0.5 mcg BID ORAL 10/31/18 09:00 11/30/18 08:59 10/31/18 17:47 Calcium Carbonate (Os-Den) 2,500 mg THREE TIMES A DAY ORAL 10/31/18 09:00 11/30/18 08:59 10/31/18 17:47 Calcium Gluconate 1 gm/Sodium Chloride 120 ml @ 240 mls/hr Q6HR IVPB 10/31/18 18:00 11/30/18 11:59 11/01/18 06:14 Dextrose (Dextrose 50%) 25 ml Q30M PRN IV Hypoglycemia 10/30/18 13:15 11/29/18 13:14 Dextrose (Dextrose 50%) 50 ml Q30M PRN IV Hypoglycemia 10/30/18 13:15 11/29/18 13:14 Ergocalciferol (Drisdol) 50,000 intlu QWEEK ORAL 10/31/18 13:00 11/30/18 12:59 10/31/18 14:36 Famotidine (Pepcid) 20 mg BID ORAL 11/01/18 09:00 5/31/19 08:59 Heparin Sodium (Porcine) (Heparin 5000 units/ml) 5,000 units EVERY 12 HOURS SUBQ 10/30/18 21:00 11/29/18 20:59 10/31/18 21:05 Levothyroxine Sodium (Synthroid) 100 mcg ACBREAKFAST ORAL 10/31/18 06:30 11/30/18 06:29 11/01/18 06:14 Lorazepam (Ativan 2mg/ml 1ml) 0.5 mg Q4H PRN IV For Anxiety 10/30/18 13:15 11/06/18 13:14 Methylprednisolone Sodium Succinate (Solu-MEDROL) 60 mg DAILY IV 11/01/18 09:00 11/29/18 13:59 Morphine Sulfate (Morphine Sulfate) 2 mg Q4H PRN IVP severe pain 7-10 10/30/18 20:15 11/06/18 13:14 Nitroglycerin (Ntg) 0.4 mg Q5M X 3 DOSES PRN SL Prn Chest Pain 10/30/18 13:15 11/29/18 13:14 Ondansetron HCl (Zofran) 4 mg Q6H PRN IVP Nausea & Vomiting 10/30/18 13:15 11/29/18 13:14 Piperacillin Sod/ Tazobactam Sod 3.375 gm/Sodium Chloride 110 ml @ 27.5 mls/hr EVERY 8 HOURS IVPB 10/30/18 14:00 11/04/18 13:59 11/01/18 06:13 Promethazine HCl/ Codeine (Phenergan with Codeine) 5 ml Q6H PRN ORAL cough 10/30/18 13:15 11/29/18 13:14 Temazepam (Restoril) 15 mg HSPRN PRN ORAL Insomnia 10/30/18 13:15 11/06/18 13:14 Isaac Parker MD November 01, 2018 06:31
[2018-11-01 06:39] LABS: BASOPHILS % (AUTO) 0.3 % (0.0-2.0); HEMATOCRIT 27.6 % (37.0-47.0); HEMOGLOBIN 9.2 G/DL (12.0-16.0); LYMPHOCYTES % (AUTO) 15.7 % (20.0-45.0); MEAN CORPUSCULAR VOLUME 88 FL (80-99); MONOCYTES % (AUTO) 5.8 % (1.0-10.0); NEUTROPHILS % (AUTO) 78.1 % (45.0-75.0); PLATELET COUNT 242 K/UL (150-450); RED BLOOD COUNT 3.13 M/UL (4.20-5.40); RED CELL DISTRIBUTION WIDTH 13.9 % (11.6-14.8)
[2018-11-01 07:06] LABS: % IRON SATURATION 26 % (15-50); IRON 70 ug/dL (50-175); TOTAL IRON BINDING CAPACITY 267 ug/dL (250-450)
[2018-11-01 07:23] LABS: ALANINE AMINOTRANSFERASE 32 U/L (12-78); ALBUMIN/GLOBULIN RATIO 0.7 (1.0-2.7); ALKALINE PHOSPHATASE 87 U/L (46-116); ANION GAP 13 mmol/L (5-15); ASPARTATE AMINO TRANSFERASE 19 U/L (15-37); BILIRUBIN,TOTAL 0.3 MG/DL (0.2-1.0); BLOOD UREA NITROGEN 18 mg/dL (7-18); CARBON DIOXIDE 24 MMOL/L (21-32); CHLORIDE 109 MMOL/L (98-107); CHOLESTEROL 249 MG/DL (< 200); CREATININE 0.8 MG/DL (0.55-1.30); HDL CHOLESTEROL 47 MG/DL (40-60); PHOSPHORUS 5.3 MG/DL (2.5-4.9); POTASSIUM 2.8 MMOL/L (3.5-5.1); SODIUM 146 MMOL/L (136-145); TRIGLYCERIDES 134 MG/DL (30-150)
[2018-11-01 08:00] VITALS: BP 129/79
[2018-11-01] MEDS ORDERED: Solu-MEDROL 125mg Inj IV SCH (09:00)
[2018-11-01] MEDS: Calcitriol 0.25mcg Cap ORAL SCH (09:24)
[2018-11-01] MEDS: Heparin 5000 units/ml inj SUBQ SCH ×2 (09:25→20:33)
--- NOTE | 2018-11-01 09:49 | General Progress Note ---
Assessment/Plan Problem List: (1) Tracheostomy in place ICD Codes: Z93.0 - Tracheostomy status SNOMED: 329216726 (2) Hypocalcemia ICD Codes: E83.51 - Hypocalcemia SNOMED: 1275469 (3) Post-surgical hypothyroidism ICD Codes: E89.0 - Postprocedural hypothyroidism SNOMED: 71300023 (4) Thyroid cancer ICD Codes: C73 - Malignant neoplasm of thyroid gland SNOMED: 284933181 (5) Post-surgical hypoparathyroidism ICD Codes: E89.2 - Postprocedural hypoparathyroidism SNOMED: 05367498 (6) Hypoparathyroidism ICD Codes: E20.9 - Hypoparathyroidism, unspecified SNOMED: 93437166 Qualifiers: Qualified Codes: E20.8 - Other hypoparathyroidism Status: unchanged Assessment/Plan: pt diet o2 pulm tx neph endo f/u cbc bmp am Subjective Constitutional: Reports: weakness Allergies: Coded Allergies: No Known Allergies (Unverified , 10/30/18) All Systems: reviewed and negative except above Subjective trach aerosol calm Objective Last 24 Hour Vital Signs Date Time Temp Pulse Resp B/P (MAP) Pulse Ox O2 Delivery O2 Flow Rate FiO2 11/01/18 06:50 80 17 Trach Collar 6.0 28 11/01/18 06:50 97 Trach Collar 6.0 28 11/01/18 06:50 Trach Collar 6.0 28 11/01/18 04:00 97.4 75 19 112/71 (85) 95 11/01/18 01:09 96 Trach Collar 6.0 28 11/01/18 01:09 Trach Collar 6.0 28 11/01/18 00:00 98.5 74 18 131/74 (93) 96 10/31/18 21:00 Trach Collar 10/31/18 20:00 97.7 84 19 131/73 (92) 95 10/31/18 20:00 89 10/31/18 19:06 96 Trach Collar 6.0 28 10/31/18 19:06 58 18 Trach Collar 6.0 28 10/31/18 19:06 Trach Collar 6.0 28 10/31/18 16:00 91 10/31/18 16:00 97.6 88 18 123/76 (92) 96 10/31/18 13:05 Trach Collar 6.0 28 10/31/18 13:05 96 Trach Collar 6.0 28 10/31/18 12:24 97.9 92 20 127/80 (96) 96 10/31/18 12:00 89 Intake and Output 10/31/18 11/01/18 18:59 06:59 Intake Total 360 ml 230 ml Balance 360 ml 230 ml Intake Oral 360 ml IV Total 230 ml # Voids 3 2 Laboratory Tests 11/01/18 05:20: White Blood Count 13.0H, Red Blood Count 3.13L, Hemoglobin 9.2L, Hematocrit 27.6L, Mean Corpuscular Volume 88, Mean Corpuscular Hemoglobin 29.5, Mean Corpuscular Hemoglobin Concent 33.5, Red Cell Distribution Width 13.9, Platelet Count 242, Mean Platelet Volume 7.0, Neutrophils (%) (Auto) 78.1H, Lymphocytes ( %) (Auto) 15.7L, Monocytes (%) (Auto) 5.8, Eosinophils (%) (Auto) 0.0, Basophils (%) (Auto) 0.3, Sodium Level 146H, Potassium Level 2.8L, Chloride Level 109H, Carbon Dioxide Level 24, Anion Gap 13, Blood Urea Nitrogen 18, Creatinine 0.8, Estimat Glomerular Filtration Rate > 60, Glucose Level 100, Uric Acid 2.0L, Calcium Level 7.0#L, Ionized Calcium (Measured) 0.91L, Phosphorus Level 5.3H, Magnesium Level 1.9, Iron Level 70, Total Iron Binding Capacity 267, Percent Iron Saturation 26, Unsaturated Iron Binding 197, Ferritin 124, Total Bilirubin 0.3, Aspartate Amino Transf (AST/SGOT) 19, Alanine Aminotransferase (ALT/SGPT) 32, Alkaline Phosphatase 87, C-Reactive Protein, Quantitative 9.4H, Pro-B-Type Natriuretic Peptide 371H, Total Protein 7.1, Albumin 3.0L, Globulin 4.1, Albumin/Globulin Ratio 0.7L, Triglycerides Level 134, Cholesterol Level 249H, LDL Cholesterol 183H, HDL Cholesterol 47, Cholesterol/HDL Ratio 5.3H, Vitamin B12 Level 430, Folate 20.0 Height (Feet): 5 Height (Inches): 2.00 Weight (Pounds): 140 General Appearance: alert EENT: normal ENT inspection Neck: normal alignment Cardiovascular: normal peripheral pulses, normal rate, regular rhythm Respiratory/Chest: chest wall non-tender, lungs clear, normal breath sounds Abdomen: normal bowel sounds, non tender, soft Extremities: normal inspection Edema: no edema noted Arm (L), no edema noted Arm (R), no edema noted Leg (L), no edema noted Leg (R), no edema noted Pedal (L), no edema noted Pedal (R), no edema noted Generalized Neurologic: responsive, motor weakness Skin: normal pigmentation, warm/dry Omer Matamoros November 01, 2018 09:49
--- NOTE | 2018-11-01 10:17 | Nephrology Progress Note ---
Assessment/Plan Problem List: (1) Hypocalcemia (2) Post-surgical hypothyroidism (3) Thyroid cancer (4) Post-surgical hypoparathyroidism (5) Tracheostomy in place (6) Anemia Assessment s/p Throat surgery for thyroid cancer HypoParathyroidism HypoCalcemia Tracheostomy in place Anemia Plan IV Den gluc PO Ca PO Vit D 25 & 1,25 monitor Ca Phos Mag per orders Subjective ROS Limited/Unobtainable: No Constitutional: Reports: other - feels stronger Objective Objective Last 24 Hour Vital Signs Date Time Temp Pulse Resp B/P (MAP) Pulse Ox O2 Delivery O2 Flow Rate FiO2 11/01/18 06:50 80 17 Trach Collar 6.0 28 11/01/18 06:50 97 Trach Collar 6.0 28 11/01/18 06:50 Trach Collar 6.0 28 11/01/18 04:00 97.4 75 19 112/71 (85) 95 11/01/18 01:09 96 Trach Collar 6.0 28 11/01/18 01:09 Trach Collar 6.0 28 11/01/18 00:00 98.5 74 18 131/74 (93) 96 10/31/18 21:00 Trach Collar 10/31/18 20:00 97.7 84 19 131/73 (92) 95 10/31/18 20:00 89 10/31/18 19:06 96 Trach Collar 6.0 28 10/31/18 19:06 58 18 Trach Collar 6.0 28 10/31/18 19:06 Trach Collar 6.0 28 10/31/18 16:00 91 10/31/18 16:00 97.6 88 18 123/76 (92) 96 10/31/18 13:05 Trach Collar 6.0 28 10/31/18 13:05 96 Trach Collar 6.0 28 10/31/18 12:24 97.9 92 20 127/80 (96) 96 10/31/18 12:00 89 Intake and Output 10/31/18 11/01/18 19:00 07:00 Intake Total 360 ml 230 ml Balance 360 ml 230 ml Intake Oral 360 ml IV Total 230 ml # Voids 3 2 Laboratory Tests 11/01/18 05:20: White Blood Count 13.0H, Red Blood Count 3.13L, Hemoglobin 9.2L, Hematocrit 27.6L, Mean Corpuscular Volume 88, Mean Corpuscular Hemoglobin 29.5, Mean Corpuscular Hemoglobin Concent 33.5, Red Cell Distribution Width 13.9, Platelet Count 242, Mean Platelet Volume 7.0, Neutrophils (%) (Auto) 78.1H, Lymphocytes ( %) (Auto) 15.7L, Monocytes (%) (Auto) 5.8, Eosinophils (%) (Auto) 0.0, Basophils (%) (Auto) 0.3, Sodium Level 146H, Potassium Level 2.8L, Chloride Level 109H, Carbon Dioxide Level 24, Anion Gap 13, Blood Urea Nitrogen 18, Creatinine 0.8, Estimat Glomerular Filtration Rate > 60, Glucose Level 100, Uric Acid 2.0L, Calcium Level 7.0#L, Ionized Calcium (Measured) 0.91L, Phosphorus Level 5.3H, Magnesium Level 1.9, Iron Level 70, Total Iron Binding Capacity 267, Percent Iron Saturation 26, Unsaturated Iron Binding 197, Ferritin 124, Total Bilirubin 0.3, Aspartate Amino Transf (AST/SGOT) 19, Alanine Aminotransferase (ALT/SGPT) 32, Alkaline Phosphatase 87, C-Reactive Protein, Quantitative 9.4H, Pro-B-Type Natriuretic Peptide 371H, Total Protein 7.1, Albumin 3.0L, Globulin 4.1, Albumin/Globulin Ratio 0.7L, Triglycerides Level 134, Cholesterol Level 249H, LDL Cholesterol 183H, HDL Cholesterol 47, Cholesterol/HDL Ratio 5.3H, Vitamin B12 Level 430, Folate 20.0 Height (Feet): 5 Height (Inches): 2.00 Weight (Pounds): 140 General Appearance: no apparent distress EENT: other - trach Cardiovascular: normal rate Respiratory/Chest: lungs clear Abdomen: soft Franklin Gardner MD November 01, 2018 10:17
--- NOTE | 2018-11-01 11:25 | Pulmonology Progress Note ---
Assessment/Plan Problems: (1) Hypocalcemia (2) Tracheostomy in place (3) Hypoparathyroidism Assessment/Plan Ca better K supplement check electrolytes dvt prophylaxis Subjective ROS Limited/Unobtainable: No Constitutional: Reports: no symptoms HEENT: Repors: no symptoms Respiratory: Reports: no symptoms Cardiovascular: Reports: no symptoms Allergies: Coded Allergies: No Known Allergies (Unverified , 10/30/18) Objective Last 24 Hour Vital Signs Date Time Temp Pulse Resp B/P (MAP) Pulse Ox O2 Delivery O2 Flow Rate FiO2 11/01/18 09:00 Trach Collar 11/01/18 08:00 97.2 91 20 129/79 (96) 98 11/01/18 06:50 80 17 Trach Collar 6.0 28 11/01/18 06:50 97 Trach Collar 6.0 28 11/01/18 06:50 Trach Collar 6.0 28 11/01/18 04:00 97.4 75 19 112/71 (85) 95 11/01/18 01:09 96 Trach Collar 6.0 28 11/01/18 01:09 Trach Collar 6.0 28 11/01/18 00:00 98.5 74 18 131/74 (93) 96 10/31/18 21:00 Trach Collar 10/31/18 20:00 97.7 84 19 131/73 (92) 95 10/31/18 20:00 89 10/31/18 19:06 96 Trach Collar 6.0 28 10/31/18 19:06 58 18 Trach Collar 6.0 28 10/31/18 19:06 Trach Collar 6.0 28 10/31/18 16:00 91 10/31/18 16:00 97.6 88 18 123/76 (92) 96 10/31/18 13:05 Trach Collar 6.0 28 10/31/18 13:05 96 Trach Collar 6.0 28 10/31/18 12:24 97.9 92 20 127/80 (96) 96 10/31/18 12:00 89 Intake and Output 10/31/18 11/01/18 18:59 06:59 Intake Total 360 ml 230 ml Balance 360 ml 230 ml Intake Oral 360 ml IV Total 230 ml # Voids 3 2 General Appearance: WD/WN, no acute distress HEENT: normocephalic Respiratory/Chest: chest wall non-tender, lungs clear Breasts: no masses Cardiovascular: normal peripheral pulses Abdomen: normal bowel sounds, soft, non tender Genitourinary: normal external genitalia Extremities: no clubbing Neurologic/Psychiatric: stop attacher II-XII grossly normal Microbiology Date/Time Source Procedure Growth Status 10/31/18 05:00 Sputum Gram Stain - Final Resulted 10/31/18 05:00 Sputum Sputum Culture - Preliminary NORMAL UPPER RESPIRATORY CARI AT 24 ... Resulted Laboratory Tests 11/01/18 05:20: White Blood Count 13.0H, Red Blood Count 3.13L, Hemoglobin 9.2L, Hematocrit 27.6L, Mean Corpuscular Volume 88, Mean Corpuscular Hemoglobin 29.5, Mean Corpuscular Hemoglobin Concent 33.5, Red Cell Distribution Width 13.9, Platelet Count 242, Mean Platelet Volume 7.0, Neutrophils (%) (Auto) 78.1H, Lymphocytes ( %) (Auto) 15.7L, Monocytes (%) (Auto) 5.8, Eosinophils (%) (Auto) 0.0, Basophils (%) (Auto) 0.3, Sodium Level 146H, Potassium Level 2.8L, Chloride Level 109H, Carbon Dioxide Level 24, Anion Gap 13, Blood Urea Nitrogen 18, Creatinine 0.8, Estimat Glomerular Filtration Rate > 60, Glucose Level 100, Uric Acid 2.0L, Calcium Level 7.0#L, Ionized Calcium (Measured) 0.91L, Phosphorus Level 5.3H, Magnesium Level 1.9, Iron Level 70, Total Iron Binding Capacity 267, Percent Iron Saturation 26, Unsaturated Iron Binding 197, Ferritin 124, Total Bilirubin 0.3, Aspartate Amino Transf (AST/SGOT) 19, Alanine Aminotransferase (ALT/SGPT) 32, Alkaline Phosphatase 87, C-Reactive Protein, Quantitative 9.4H, Pro-B-Type Natriuretic Peptide 371H, Total Protein 7.1, Albumin 3.0L, Globulin 4.1, Albumin/Globulin Ratio 0.7L, Triglycerides Level 134, Cholesterol Level 249H, LDL Cholesterol 183H, HDL Cholesterol 47, Cholesterol/HDL Ratio 5.3H, Vitamin B12 Level 430, Folate 20.0 Current Medications Medications (Trade) Dose Ordered Sig/Rico Route PRN Reason Start Time Stop Time Status Last Admin Dose Admin Albuterol/ Ipratropium (Albuterol/ Ipratropium) 3 ml Q4H PRN HHN dyspnea 10/30/18 13:15 11/04/18 13:14 10/31/18 04:30 Calcitriol (Rocaltrol) 0.5 mcg BID ORAL 11/01/18 18:00 12/01/18 17:59 Calcium Carbonate (Os-Den) 2,500 mg THREE TIMES A DAY ORAL 10/31/18 09:00 11/30/18 08:59 11/01/18 09:24 Calcium Gluconate 1 gm/Sodium Chloride 120 ml @ 240 mls/hr Q6HR IVPB 10/31/18 18:00 11/30/18 11:59 11/01/18 06:14 Dextrose (Dextrose 50%) 25 ml Q30M PRN IV Hypoglycemia 10/30/18 13:15 11/29/18 13:14 Dextrose (Dextrose 50%) 50 ml Q30M PRN IV Hypoglycemia 10/30/18 13:15 11/29/18 13:14 Ergocalciferol (Drisdol) 50,000 intlu QWEEK ORAL 10/31/18 13:00 11/30/18 12:59 10/31/18 14:36 Famotidine (Pepcid) 20 mg BID ORAL 11/01/18 09:00 12/01/18 08:59 11/01/18 09:24 Heparin Sodium (Porcine) (Heparin 5000 units/ml) 5,000 units EVERY 12 HOURS SUBQ 10/30/18 21:00 11/29/18 20:59 11/01/18 09:25 Levothyroxine Sodium (Synthroid) 125 mcg ACBREAKFAST ORAL 11/02/18 06:30 11/30/18 06:29 Lorazepam (Ativan 2mg/ml 1ml) 0.5 mg Q4H PRN IV For Anxiety 10/30/18 13:15 11/06/18 13:14 Morphine Sulfate (Morphine Sulfate) 2 mg Q4H PRN IVP severe pain 7-10 10/30/18 20:15 11/06/18 13:14 Nitroglycerin (Ntg) 0.4 mg Q5M X 3 DOSES PRN SL Prn Chest Pain 10/30/18 13:15 11/29/18 13:14 Ondansetron HCl (Zofran) 4 mg Q6H PRN IVP Nausea & Vomiting 10/30/18 13:15 11/29/18 13:14 Potassium Chloride (K-Dur) 40 meq ONCE ORAL 11/01/18 13:00 11/01/18 14:00 Potassium Chloride (K-Dur) 40 meq ONCE ORAL 11/01/18 18:00 11/01/18 19:00 Promethazine HCl/ Codeine (Phenergan with Codeine) 5 ml Q6H PRN ORAL cough 10/30/18 13:15 11/29/18 13:14 Temazepam (Restoril) 15 mg HSPRN PRN ORAL Insomnia 10/30/18 13:15 11/06/18 13:14 Jorge Borjas MD November 01, 2018 11:25
[2018-11-01 12:00] VITALS: BP 122/88
--- NOTE | 2018-11-01 14:17 | Consultation ---
History of Present Illness General Chief Complaint: Dyspnea/Respdistress Present Illness Allergies: Coded Allergies: No Known Allergies (Unverified , 10/30/18) Medication History Scheduled Calcitriol (Calcitriol), 0.25 MCG ORAL BID, (Reported) Levothyroxine Sodium* (Synthroid*), 100 MCG ORAL DAILY, (Reported) Patient History Healthcare decision maker Resuscitation status Full Code Advanced Directive on File Physical Exam Last 24 Hour Vital Signs Date Time Temp Pulse Resp B/P (MAP) Pulse Ox O2 Delivery O2 Flow Rate FiO2 11/01/18 11:31 Trach Collar 6.0 28 11/01/18 11:31 96 Trach Collar 6.0 28 11/01/18 09:00 Trach Collar 11/01/18 08:00 97.2 91 20 129/79 (96) 98 11/01/18 06:50 80 17 Trach Collar 6.0 28 11/01/18 06:50 97 Trach Collar 6.0 28 11/01/18 06:50 Trach Collar 6.0 28 11/01/18 04:00 97.4 75 19 112/71 (85) 95 11/01/18 01:09 96 Trach Collar 6.0 28 11/01/18 01:09 Trach Collar 6.0 28 11/01/18 00:00 98.5 74 18 131/74 (93) 96 10/31/18 21:00 Trach Collar 10/31/18 20:00 97.7 84 19 131/73 (92) 95 10/31/18 20:00 89 10/31/18 19:06 96 Trach Collar 6.0 28 10/31/18 19:06 58 18 Trach Collar 6.0 28 10/31/18 19:06 Trach Collar 6.0 28 10/31/18 16:00 91 10/31/18 16:00 97.6 88 18 123/76 (92) 96 Intake and Output 10/31/18 11/01/18 18:59 06:59 Intake Total 360 ml 230 ml Balance 360 ml 230 ml Intake Oral 360 ml IV Total 230 ml # Voids 3 2 Laboratory Tests Test 11/01/18 05:20 White Blood Count 13.0 K/UL (4.8-10.8) H Red Blood Count 3.13 M/UL (4.20-5.40) L Hemoglobin 9.2 G/DL (12.0-16.0) L Hematocrit 27.6 % (37.0-47.0) L Mean Corpuscular Volume 88 FL (80-99) Mean Corpuscular Hemoglobin 29.5 PG (27.0-31.0) Mean Corpuscular Hemoglobin Concent 33.5 G/DL (32.0-36.0) Red Cell Distribution Width 13.9 % (11.6-14.8) Platelet Count 242 K/UL (150-450) Mean Platelet Volume 7.0 FL (6.5-10.1) Neutrophils (%) (Auto) 78.1 % (45.0-75.0) H Lymphocytes (%) (Auto) 15.7 % (20.0-45.0) L Monocytes (%) (Auto) 5.8 % (1.0-10.0) Eosinophils (%) (Auto) 0.0 % (0.0-3.0) Basophils (%) (Auto) 0.3 % (0.0-2.0) Sodium Level 146 MMOL/L (136-145) H Potassium Level 2.8 MMOL/L (3.5-5.1) L Chloride Level 109 MMOL/L (98-107) H Carbon Dioxide Level 24 MMOL/L (21-32) Anion Gap 13 mmol/L (5-15) Blood Urea Nitrogen 18 mg/dL (7-18) Creatinine 0.8 MG/DL (0.55-1.30) Estimat Glomerular Filtration Rate > 60 mL/min (>60) Glucose Level 100 MG/DL (74-106) Uric Acid 2.0 MG/DL (2.6-7.2) L Calcium Level 7.0 MG/DL (8.5-10.1) #L Ionized Calcium (Measured) 0.91 mmol/L (1.10-1.35) L Phosphorus Level 5.3 MG/DL (2.5-4.9) H Magnesium Level 1.9 MG/DL (1.8-2.4) Iron Level 70 ug/dL (50-175) Total Iron Binding Capacity 267 ug/dL (250-450) Percent Iron Saturation 26 % (15-50) Unsaturated Iron Binding 197 ug/dL (112-346) Ferritin 124 NG/ML (8-388) Total Bilirubin 0.3 MG/DL (0.2-1.0) Aspartate Amino Transf (AST/SGOT) 19 U/L (15-37) Alanine Aminotransferase (ALT/SGPT) 32 U/L (12-78) Alkaline Phosphatase 87 U/L (46-116) C-Reactive Protein, Quantitative 9.4 mg/dL (0.00-0.90) H Pro-B-Type Natriuretic Peptide 371 pg/mL (0-125) H Total Protein 7.1 G/DL (6.4-8.2) Albumin 3.0 G/DL (3.4-5.0) L Globulin 4.1 g/dL Albumin/Globulin Ratio 0.7 (1.0-2.7) L Triglycerides Level 134 MG/DL (30-150) Cholesterol Level 249 MG/DL (< 200) H LDL Cholesterol 183 mg/dL (<100) H HDL Cholesterol 47 MG/DL (40-60) Cholesterol/HDL Ratio 5.3 (3.3-4.4) H Vitamin B12 Level 430 PG/ML (193-986) Folate 20.0 NG/ML (8.6-58.9) Height (Feet): 5 Height (Inches): 2.00 Weight (Pounds): 140 Medications Current Medications Medications (Trade) Dose Ordered Sig/Rico Route PRN Reason Start Time Stop Time Status Last Admin Dose Admin Albuterol/ Ipratropium (Albuterol/ Ipratropium) 3 ml Q4H PRN HHN dyspnea 10/30/18 13:15 11/04/18 13:14 10/31/18 04:30 Calcitriol (Rocaltrol) 0.5 mcg BID ORAL 11/01/18 18:00 12/01/18 17:59 Calcium Carbonate (Os-Den) 2,500 mg THREE TIMES A DAY ORAL 10/31/18 09:00 11/30/18 08:59 11/01/18 13:09 Calcium Gluconate 1 gm/Sodium Chloride 120 ml @ 240 mls/hr Q6HR IVPB 10/31/18 18:00 11/30/18 11:59 11/01/18 06:14 Dextrose (Dextrose 50%) 25 ml Q30M PRN IV Hypoglycemia 10/30/18 13:15 11/29/18 13:14 Dextrose (Dextrose 50%) 50 ml Q30M PRN IV Hypoglycemia 10/30/18 13:15 11/29/18 13:14 Ergocalciferol (Drisdol) 50,000 intlu QWEEK ORAL 10/31/18 13:00 11/30/18 12:59 10/31/18 14:36 Famotidine (Pepcid) 20 mg BID ORAL 11/01/18 09:00 12/01/18 08:59 11/01/18 09:24 Heparin Sodium (Porcine) (Heparin 5000 units/ml) 5,000 units EVERY 12 HOURS SUBQ 10/30/18 21:00 11/29/18 20:59 11/01/18 09:25 Levothyroxine Sodium (Synthroid) 125 mcg ACBREAKFAST ORAL 11/02/18 06:30 11/30/18 06:29 Lorazepam (Ativan 2mg/ml 1ml) 0.5 mg Q4H PRN IV For Anxiety 10/30/18 13:15 11/06/18 13:14 Morphine Sulfate (Morphine Sulfate) 2 mg Q4H PRN IVP severe pain 7-10 10/30/18 20:15 11/06/18 13:14 Nitroglycerin (Ntg) 0.4 mg Q5M X 3 DOSES PRN SL Prn Chest Pain 10/30/18 13:15 11/29/18 13:14 Ondansetron HCl (Zofran) 4 mg Q6H PRN IVP Nausea & Vomiting 10/30/18 13:15 11/29/18 13:14 Potassium Chloride (K-Dur) 40 meq ONCE ORAL 11/01/18 18:00 11/01/18 19:00 Promethazine HCl/ Codeine (Phenergan with Codeine) 5 ml Q6H PRN ORAL cough 10/30/18 13:15 11/29/18 13:14 Temazepam (Restoril) 15 mg HSPRN PRN ORAL Insomnia 10/30/18 13:15 11/06/18 13:14 Assessment/Plan Assessment/Plan: Hematology Consultation REQ MD: Jimi Matamoros DOS: 11/01/18 Chief Complaint: Dyspnea/Respdistress RFC: Anemia evaluation, leukocytosis ID [id number] old female and presents with dyspnea. She was transported by EMS. Is a tracheostomy. The patient is complains of also left arm pain at this time. She is extremely anxious and unable to give a full history at the moment. She also had neck surgery. Further history came from her surgeon. Apparently she recently underwent neck resection for thyroid cancer. 2 of her parathyroids were retained. Apparently they were nonfunctional at discharge and she was discharged on calcitonin and calcium. According to the surgeon she has been noncompliant with these medications. She was discharged with a calcium of 7.4. Because of the extensive resection the tracheostomy was less than place. The family denies any fevers or productive cough. She has had some mild phlegm production via the tracheostomy. The patient denies chest pain but does complain of left arm pain. She also feels her hands are stuck in a contracted position that occurred just prior to that respiratory difficulty also. No leg edema or calf pain. She at this time has no nausea, vomiting, diarrhea or dysuria. No rashes. The neck wounds are healing without difficulty. Allergies: No Known Allergies (Unverified , 10/30/18) Limited by: medical condition Past Medical History: see triage record Past Surgical History: other - Thyroid cancer resection with retention of parathyroid glands x2. Social History: Denies: smoking, alcohol use, drug use Social History Narrative With family Now: No Reviewed Nursing Documentation: PMH: Agreed; PSxH: Agreed Past Medical History: No History, Except For Hx Cancer: Yes - throat Review of Systems: limited PE Vital Signs Date Time Temp Pulse Resp B/P (MAP) Pulse Ox O2 Delivery O2 Flow Rate FiO2 10/31/18 08:54 98.4 87 20 117/54 99 Trach Collar Sp02 EP Interpretation: reviewed, normal General Appearance: alert, moderate distress Eyes: bilateral eye normal inspection, bilateral eye PERRL ENT: normal pharynx Neck: surgical scars, ++ tracheotomy Respiratory: chest non-tender, lungs clear, normal BSs Cardiovascular: no edema, tachycardia, 1+ radial (L) Gastrointestinal: non tender, soft, decreased bowel sounds Genitourinary: no CVA tenderness MSK: back normal, no calf tenderness Neurologic: alert, home agent III-XII nml as tested, DTRs symmetric Skin: other - Surgical scars Laboratory Tests Test 11/01/18 05:20 White Blood Count 13.0 K/UL (4.8-10.8) H Red Blood Count 3.13 M/UL (4.20-5.40) L Hemoglobin 9.2 G/DL (12.0-16.0) L Hematocrit 27.6 % (37.0-47.0) L Mean Corpuscular Volume 88 FL (80-99) Mean Corpuscular Hemoglobin 29.5 PG (27.0-31.0) Mean Corpuscular Hemoglobin Concent 33.5 G/DL (32.0-36.0) Red Cell Distribution Width 13.9 % (11.6-14.8) Platelet Count 242 K/UL (150-450) Mean Platelet Volume 7.0 FL (6.5-10.1) Neutrophils (%) (Auto) 78.1 % (45.0-75.0) H Lymphocytes (%) (Auto) 15.7 % (20.0-45.0) L Monocytes (%) (Auto) 5.8 % (1.0-10.0) Eosinophils (%) (Auto) 0.0 % (0.0-3.0) Basophils (%) (Auto) 0.3 % (0.0-2.0) Sodium Level 146 MMOL/L (136-145) H Potassium Level 2.8 MMOL/L (3.5-5.1) L Chloride Level 109 MMOL/L (98-107) H Carbon Dioxide Level 24 MMOL/L (21-32) Anion Gap 13 mmol/L (5-15) Blood Urea Nitrogen 18 mg/dL (7-18) Creatinine 0.8 MG/DL (0.55-1.30) Estimat Glomerular Filtration Rate > 60 mL/min (>60) Glucose Level 100 MG/DL (74-106) Uric Acid 2.0 MG/DL (2.6-7.2) L Calcium Level 7.0 MG/DL (8.5-10.1) #L Ionized Calcium (Measured) 0.91 mmol/L (1.10-1.35) L Phosphorus Level 5.3 MG/DL (2.5-4.9) H Magnesium Level 1.9 MG/DL (1.8-2.4) Iron Level 70 ug/dL (50-175) Total Iron Binding Capacity 267 ug/dL (250-450) Percent Iron Saturation 26 % (15-50) Unsaturated Iron Binding 197 ug/dL (112-346) Ferritin 124 NG/ML (8-388) Total Bilirubin 0.3 MG/DL (0.2-1.0) Aspartate Amino Transf (AST/SGOT) 19 U/L (15-37) Alanine Aminotransferase (ALT/SGPT) 32 U/L (12-78) Alkaline Phosphatase 87 U/L (46-116) C-Reactive Protein, Quantitative 9.4 mg/dL (0.00-0.90) H Pro-B-Type Natriuretic Peptide 371 pg/mL (0-125) H Total Protein 7.1 G/DL (6.4-8.2) Albumin 3.0 G/DL (3.4-5.0) L Globulin 4.1 g/dL Albumin/Globulin Ratio 0.7 (1.0-2.7) L Triglycerides Level 134 MG/DL (30-150) Cholesterol Level 249 MG/DL (< 200) H LDL Cholesterol 183 mg/dL (<100) H HDL Cholesterol 47 MG/DL (40-60) Cholesterol/HDL Ratio 5.3 (3.3-4.4) H Vitamin B12 Level 430 PG/ML (193-986) Folate 20.0 NG/ML (8.6-58.9) Active Scripts Medications Dose Route/Sig Max Daily Dose Days Date Category Dose Instructions Calcitriol 0.25 Mcg Capsule 0.25 Mcg ORAL BID 10/30/18 Reported Synthroid* (Levothyroxine Sodium) 100 Mcg Tablet 100 Mcg ORAL DAILY 10/30/18 Reported Take in the morning on an empty stomach, at least 30 minutes before food. Assessment and Recs: # Status post thyroid cancer resection, with parathyroid resection and now with Hypocalcemia, also s/p Tracheostomy in place --> as per surgical Edin soto ) --> obtain pathology report of the path tissue --> is s/p calcium gluconate as per neprho --> at 6 mo intervals needs TSH, thyroglobulin check and potentially i-131 eval --> endo followup as well # Anemia of chronic disease due to underlying chronic medical issues, multifactorial --> Anemia workup has been ordered, and ferritin and tibc are not deficient --> No evidence of hemolysis is noted, peripheral smear has been reviewed. --> Hgb goal >7. Transfuse prn. --> Epogen or iron at this time is not particularly indicated --> Medications have been reviewed --> evaluate with Gi team prn --> transfuse if hgb is < 7 (will trend CBC daily) --> low threshold for gi evaluation in case has occult + # Hypoparathyroidism # Agitation improved with ativan # status post tracheostomy site. There is no more respiratory distress. --> as per pulm/surg The timing of this note does not necessarily reflect the time of the patient was seen. Greatly appreciate consultation! Trey Rehman MD November 01, 2018 14:17
[2018-11-01 16:00] VITALS: BP 138/85
[2018-11-01] MEDS: Calcitriol 0.5mcg Cap ORAL SCH (17:14)
[2018-11-01 20:00] VITALS: BP 134/78
--- NOTE | 2018-11-01 20:22 | Consultation ---
Consult Note Consult Note # [id number] Marcio Echeverria MD November 01, 2018 20:22
--- NOTE | 2018-11-01 22:24 | Surgery Progress Note ---
Surgery Progress Note Subjective Additional Comments symptoms much improved. no n/v/f/c. much more comfortable today. labs improved. discussed case with primary surgeon from outside facility Objective Last 24 Hour Vital Signs Date Time Temp Pulse Resp B/P (MAP) Pulse Ox O2 Delivery O2 Flow Rate FiO2 11/01/18 20:00 98.4 79 20 134/78 (96) 96 11/01/18 19:24 Trach Collar 6.0 28 11/01/18 19:23 98 Trach Collar 6.0 28 11/01/18 19:19 80 17 Trach Collar 6.0 28 11/01/18 16:00 97.2 80 20 138/85 (102) 97 11/01/18 12:00 97.2 89 20 122/88 (99) 96 11/01/18 11:31 Trach Collar 6.0 28 11/01/18 11:31 96 Trach Collar 6.0 28 11/01/18 09:00 Trach Collar 11/01/18 08:00 97.2 91 20 129/79 (96) 98 11/01/18 06:50 80 17 Trach Collar 6.0 28 11/01/18 06:50 97 Trach Collar 6.0 28 11/01/18 06:50 Trach Collar 6.0 28 11/01/18 04:00 97.4 75 19 112/71 (85) 95 11/01/18 01:09 96 Trach Collar 6.0 28 11/01/18 01:09 Trach Collar 6.0 28 11/01/18 00:00 98.5 74 18 131/74 (93) 96 I&O Intake and Output 10/31/18 11/01/18 19:00 07:00 Intake Total 360 ml 230 ml Balance 360 ml 230 ml Intake Oral 360 ml IV Total 230 ml # Voids 3 2 Dressing: dry Wound: clean Drains: none Cardiovascular: RSR Respiratory: clear Abdomen: soft, flat, non-tender, present bowel sounds Extremities: no edema, no tenderness, no cyanosis Laboratory Tests Test 11/01/18 05:20 White Blood Count 13.0 K/UL (4.8-10.8) H Red Blood Count 3.13 M/UL (4.20-5.40) L Hemoglobin 9.2 G/DL (12.0-16.0) L Hematocrit 27.6 % (37.0-47.0) L Mean Corpuscular Volume 88 FL (80-99) Mean Corpuscular Hemoglobin 29.5 PG (27.0-31.0) Mean Corpuscular Hemoglobin Concent 33.5 G/DL (32.0-36.0) Red Cell Distribution Width 13.9 % (11.6-14.8) Platelet Count 242 K/UL (150-450) Mean Platelet Volume 7.0 FL (6.5-10.1) Neutrophils (%) (Auto) 78.1 % (45.0-75.0) H Lymphocytes (%) (Auto) 15.7 % (20.0-45.0) L Monocytes (%) (Auto) 5.8 % (1.0-10.0) Eosinophils (%) (Auto) 0.0 % (0.0-3.0) Basophils (%) (Auto) 0.3 % (0.0-2.0) Sodium Level 146 MMOL/L (136-145) H Potassium Level 2.8 MMOL/L (3.5-5.1) L Chloride Level 109 MMOL/L (98-107) H Carbon Dioxide Level 24 MMOL/L (21-32) Anion Gap 13 mmol/L (5-15) Blood Urea Nitrogen 18 mg/dL (7-18) Creatinine 0.8 MG/DL (0.55-1.30) Estimat Glomerular Filtration Rate > 60 mL/min (>60) Glucose Level 100 MG/DL (74-106) Uric Acid 2.0 MG/DL (2.6-7.2) L Calcium Level 7.0 MG/DL (8.5-10.1) #L Ionized Calcium (Measured) 0.91 mmol/L (1.10-1.35) L Phosphorus Level 5.3 MG/DL (2.5-4.9) H Magnesium Level 1.9 MG/DL (1.8-2.4) Iron Level 70 ug/dL (50-175) Total Iron Binding Capacity 267 ug/dL (250-450) Percent Iron Saturation 26 % (15-50) Unsaturated Iron Binding 197 ug/dL (112-346) Ferritin 124 NG/ML (8-388) Total Bilirubin 0.3 MG/DL (0.2-1.0) Aspartate Amino Transf (AST/SGOT) 19 U/L (15-37) Alanine Aminotransferase (ALT/SGPT) 32 U/L (12-78) Alkaline Phosphatase 87 U/L (46-116) C-Reactive Protein, Quantitative 9.4 mg/dL (0.00-0.90) H Pro-B-Type Natriuretic Peptide 371 pg/mL (0-125) H Total Protein 7.1 G/DL (6.4-8.2) Albumin 3.0 G/DL (3.4-5.0) L Globulin 4.1 g/dL Albumin/Globulin Ratio 0.7 (1.0-2.7) L Triglycerides Level 134 MG/DL (30-150) Cholesterol Level 249 MG/DL (< 200) H LDL Cholesterol 183 mg/dL (<100) H HDL Cholesterol 47 MG/DL (40-60) Cholesterol/HDL Ratio 5.3 (3.3-4.4) H Vitamin B12 Level 430 PG/ML (193-986) Folate 20.0 NG/ML (8.6-58.9) Plan Problems: (1) Hypoparathyroidism Assessment & Plan: s/p thyroidectomy 2 parathyroids in path 2 remain per report but non functional thus far presented with symptomatic hypocalcemia. given replacement and symptoms improved replace with IV for now and oral as tolerated AM labs will follow with recs (2) Tracheostomy in place (3) Hypocalcemia Selvin Sanchez November 01, 2018 22:24
[2018-11-02] VITALS: BP 134/71
--- NOTE | 2018-11-02 02:45 | Consultation ---
DATE OF CONSULTATION: 11/01/2018 INFECTIOUS DISEASE CONSULTATION CONSULTING PHYSICIAN: Marcio Echeverria M.D. REFERRING PHYSICIAN: Omer Matamoros D.O. REASON FOR CONSULTATION: Evaluation of patient for possible urinary tract infection and antibiotic management. HISTORY OF PRESENT ILLNESS: The patient is a 63-year-old female, who was admitted recently because of the weakness. The patient was found to have hypocalcemia. Also, the patient was found to have leukocytosis. Infectious Disease consultation has been requested for further evaluation of the patient and possible need for antibiotic treatment. The patient received one dose of Zosyn in the emergency room. Also, the patient received one dose of Solu-Medrol. PAST MEDICAL HISTORY: Significant for, 1. Thyroid cancer. 2. Hypertension. 3. History of thyroid resection status post trach. MEDICATIONS: Off of antibiotics. Status post 1 dose of Zosyn. ALLERGIES: No known drug allergies. SOCIAL HISTORY: Unremarkable. FAMILY HISTORY: Not contributing. REVIEW OF SYSTEMS: HEENT: No recent change in vision or hearing . PULMONARY: No cough or shortness of breath. CARDIOVASCULAR: No chest pain or palpitation. GASTROINTESTINAL/ABDOMEN: No nausea or vomiting. GENITOURINARY: No dysuria. PHYSICAL EXAMINATION: VITAL SIGNS: Temperature 97, pulse 86, respiratory rate 18, and blood pressure 138/85. HEENT: No pale conjunctivae. No icterus. NECK: No lymphadenopathy. CHEST: Clear. HEART: S1 and S2. ABDOMEN: Soft and nontender. EXTREMITY: No cyanosis. NEUROLOGIC: Awake. LABORATORY DATA: White blood cells 13, hemoglobin 9.2, and platelets 242,000. UA is unremarkable. BUN 8 and creatinine 0.8. ALT, AST, and alkaline phosphatase are unremarkable. Sputum culture, no growth. Chest x-ray, [facility]. ASSESSMENT: 1. Leukocytosis (due to the steroids). 2. Occasional cough. No evidence of pneumonia. Chest x-ray unremarkable. 3. Urinalysis, unremarkable. No history of dysuria. 4. History of thyroid cancer. 5. Status post trach and thyroidectomy. 6. Hypocalcemia. PLAN: 1. We will monitor the patient off of antibiotics. 2. Monitor laboratories. 3. Monitor chest x-ray. 4. Monitor cultures. 5. If the patient develops fever, start the patient empirically on antibiotic treatment. Thank you, Dr. Matamoros, for allowing me to participate in the care of this patient. I will follow the patient with you during this hospitalization. Marcio Echeverria M.D. DR: GREGORIA JOB#: [id number] CC:
[2018-11-02 04:00] VITALS: BP 139/87
[2018-11-02] MEDS: Calcium Gluconate 10% 1 GM in NS 110 ML IVPB SCH (05:48)
[2018-11-02] MEDS ORDERED: Levothyroxine 125mcg tab ORAL SCH (06:30)
--- NOTE | 2018-11-02 06:37 | General Progress Note ---
Assessment/Plan Problem List: (1) Post-surgical hypothyroidism ICD Codes: E89.0 - Postprocedural hypothyroidism SNOMED: 95851377 (2) Post-surgical hypoparathyroidism ICD Codes: E89.2 - Postprocedural hypoparathyroidism SNOMED: 59833752 (3) Thyroid cancer ICD Codes: C73 - Malignant neoplasm of thyroid gland SNOMED: 466086965 (4) Tracheostomy in place ICD Codes: Z93.0 - Tracheostomy status SNOMED: 170833676 (5) Hypocalcemia ICD Codes: E83.51 - Hypocalcemia SNOMED: 6514160 Status: unchanged Assessment/Plan: continue Levothyroxine 125 mcg qam continue Calcitriol 0.5 mcg bid + Vit D + CaCO3 2500 mg bid follow serum Ca level Subjective ROS Limited/Unobtainable: Yes Allergies: Coded Allergies: No Known Allergies (Unverified , 10/30/18) Subjective events noted am labs pending Objective Last 24 Hour Vital Signs Date Time Temp Pulse Resp B/P (MAP) Pulse Ox O2 Delivery O2 Flow Rate FiO2 11/02/18 04:00 97.9 75 20 139/87 (104) 96 11/02/18 02:12 Trach Collar 6.0 28 11/02/18 02:11 97 Trach Collar 6.0 28 11/02/18 00:00 98.0 73 20 134/71 (92) 97 11/01/18 21:00 Room Air 11/01/18 20:00 98.4 79 20 134/78 (96) 96 11/01/18 19:24 Trach Collar 6.0 28 11/01/18 19:23 98 Trach Collar 6.0 28 11/01/18 19:19 80 17 Trach Collar 6.0 28 11/01/18 16:00 97.2 80 20 138/85 (102) 97 11/01/18 12:00 97.2 89 20 122/88 (99) 96 11/01/18 11:31 Trach Collar 6.0 28 11/01/18 11:31 96 Trach Collar 6.0 28 11/01/18 09:00 Trach Collar 11/01/18 08:00 97.2 91 20 129/79 (96) 98 11/01/18 06:50 80 17 Trach Collar 6.0 28 11/01/18 06:50 97 Trach Collar 6.0 28 11/01/18 06:50 Trach Collar 6.0 28 Intake and Output 11/01/18 11/02/18 19:00 07:00 Intake Total 120 ml 120 ml Balance 120 ml 120 ml Intake Oral 120 ml IV Total 120 ml # Voids 4 2 Laboratory Tests 11/02/18 04:50: White Blood Count [Pending], Red Blood Count [Pending], Hemoglobin [Pending], Hematocrit [Pending], Mean Corpuscular Volume [Pending], Mean Corpuscular Hemoglobin [Pending], Mean Corpuscular Hemoglobin Concent [Pending], Red Cell Distribution Width [Pending], Platelet Count [Pending], Mean Platelet Volume [ Pending], Neutrophils (%) (Auto) [Pending], Lymphocytes (%) (Auto) [Pending], Monocytes (%) (Auto) [Pending], Eosinophils (%) (Auto) [Pending], Basophils (%) (Auto) [Pending], Sodium Level [Pending], Potassium Level [Pending], Chloride Level [Pending], Carbon Dioxide Level [Pending], Blood Urea Nitrogen [Pending], Creatinine [Pending], Estimat Glomerular Filtration Rate [Pending], Glucose Level [Pending], Calcium Level [Pending], Ionized Calcium (Measured) [Pending], Phosphorus Level [Pending], Magnesium Level [Pending], Total Bilirubin [Pending] , Aspartate Amino Transf (AST/SGOT) [Pending], Alanine Aminotransferase (ALT/ SGPT) [Pending], Alkaline Phosphatase [Pending], Total Protein [Pending], Albumin [Pending], Globulin [Pending] Height (Feet): 5 Height (Inches): 2.00 Weight (Pounds): 140 General Appearance: no apparent distress Neck: normal alignment Cardiovascular: normal rate Respiratory/Chest: decreased breath sounds Abdomen: normal bowel sounds Pelvis: normal external exam Objective Current Medications Medications (Trade) Dose Ordered Sig/Rico Route PRN Reason Start Time Stop Time Status Last Admin Dose Admin Albuterol/ Ipratropium (Albuterol/ Ipratropium) 3 ml Q4H PRN HHN dyspnea 10/30/18 13:15 11/04/18 13:14 10/31/18 04:30 Calcitriol (Rocaltrol) 0.5 mcg BID ORAL 11/01/18 18:00 12/01/18 17:59 11/01/18 17:14 Calcium Carbonate (Os-Den) 2,500 mg THREE TIMES A DAY ORAL 10/31/18 09:00 11/30/18 08:59 11/01/18 17:14 Calcium Gluconate 1 gm/Sodium Chloride 120 ml @ 240 mls/hr Q6HR IVPB 10/31/18 18:00 11/30/18 11:59 11/02/18 05:48 Dextrose (Dextrose 50%) 25 ml Q30M PRN IV Hypoglycemia 10/30/18 13:15 11/29/18 13:14 Dextrose (Dextrose 50%) 50 ml Q30M PRN IV Hypoglycemia 10/30/18 13:15 11/29/18 13:14 Ergocalciferol (Drisdol) 50,000 intlu QWEEK ORAL 10/31/18 13:00 11/30/18 12:59 10/31/18 14:36 Famotidine (Pepcid) 20 mg BID ORAL 11/01/18 09:00 12/01/18 08:59 11/01/18 17:14 Heparin Sodium (Porcine) (Heparin 5000 units/ml) 5,000 units EVERY 12 HOURS SUBQ 10/30/18 21:00 11/29/18 20:59 11/01/18 20:33 Levothyroxine Sodium (Synthroid) 125 mcg ACBREAKFAST ORAL 11/02/18 06:30 11/30/18 06:29 11/02/18 05:48 Lorazepam (Ativan 2mg/ml 1ml) 0.5 mg Q4H PRN IV For Anxiety 10/30/18 13:15 11/06/18 13:14 Morphine Sulfate (Morphine Sulfate) 2 mg Q4H PRN IVP severe pain 7-10 10/30/18 20:15 11/06/18 13:14 Nitroglycerin (Ntg) 0.4 mg Q5M X 3 DOSES PRN SL Prn Chest Pain 10/30/18 13:15 11/29/18 13:14 Ondansetron HCl (Zofran) 4 mg Q6H PRN IVP Nausea & Vomiting 10/30/18 13:15 11/29/18 13:14 Promethazine HCl/ Codeine (Phenergan with Codeine) 5 ml Q6H PRN ORAL cough 10/30/18 13:15 11/29/18 13:14 Temazepam (Restoril) 15 mg HSPRN PRN ORAL Insomnia 10/30/18 13:15 11/06/18 13:14 Isaac Parker MD November 02, 2018 06:37
[2018-11-02 06:55] LABS: BASOPHILS % (AUTO) 0.4 % (0.0-2.0); EOSINOPHILS % (AUTO) 0.9 % (0.0-3.0); HEMATOCRIT 31.8 % (37.0-47.0); HEMOGLOBIN 10.9 G/DL (12.0-16.0); LYMPHOCYTES % (AUTO) 24.3 % (20.0-45.0); MEAN CORPUSCULAR VOLUME 88 FL (80-99); MONOCYTES % (AUTO) 5.9 % (1.0-10.0); NEUTROPHILS % (AUTO) 68.4 % (45.0-75.0); PLATELET COUNT 275 K/UL (150-450); RED BLOOD COUNT 3.62 M/UL (4.20-5.40); RED CELL DISTRIBUTION WIDTH 13.8 % (11.6-14.8); WHITE BLOOD COUNT 8.8 K/UL (4.8-10.8)
[2018-11-02 07:26] LABS: ALANINE AMINOTRANSFERASE 30 U/L (12-78); ALBUMIN 3.4 G/DL (3.4-5.0); ALBUMIN/GLOBULIN RATIO 0.8 (1.0-2.7); ALKALINE PHOSPHATASE 100 U/L (46-116); ANION GAP 10 mmol/L (5-15); ASPARTATE AMINO TRANSFERASE 20 U/L (15-37); BILIRUBIN,TOTAL 0.3 MG/DL (0.2-1.0); BLOOD UREA NITROGEN 14 mg/dL (7-18); CALCIUM 8.4 MG/DL (8.5-10.1); CARBON DIOXIDE 27 MMOL/L (21-32); CHLORIDE 106 MMOL/L (98-107); CREATININE 0.8 MG/DL (0.55-1.30); PHOSPHORUS 5.4 MG/DL (2.5-4.9); POTASSIUM 3.7 MMOL/L (3.5-5.1); SODIUM 143 MMOL/L (136-145)
[2018-11-02] MEDS: Albuterol/Ipratropium 3ml neb HHN PRN (07:39)
[2018-11-02 08:00] VITALS: BP 119/79
[2018-11-02] MEDS: Calcitriol 0.5mcg Cap ORAL SCH (08:40)
[2018-11-02] MEDS: Heparin 5000 units/ml inj SUBQ SCH (08:45)
[2018-11-02] MEDS ORDERED: OS-CAL1250 MG ORAL (10:47)
[2018-11-02] MEDS ORDERED: LEVOTHYROXINE125 MCG ORAL (10:47)
[2018-11-02] MEDS ORDERED: Ergocalciferol ORAL (10:47)
[2018-11-02] MEDS ORDERED: ROCALTROL0.25 MCG ORAL (10:47)
--- NOTE | 2018-11-02 10:49 | Pulmonology Progress Note ---
Assessment/Plan Problems: (1) Hypocalcemia (2) Tracheostomy in place (3) Hypoparathyroidism Assessment/Plan Ca better K supplement check electrolytes dvt prophylaxis dc home with new Ca regimen Subjective ROS Limited/Unobtainable: No HEENT: Repors: no symptoms Allergies: Coded Allergies: No Known Allergies (Unverified , 10/30/18) Objective Last 24 Hour Vital Signs Date Time Temp Pulse Resp B/P (MAP) Pulse Ox O2 Delivery O2 Flow Rate FiO2 11/02/18 08:16 Room Air 11/02/18 08:00 98.2 82 20 119/79 (92) 96 11/02/18 07:39 97 21 11/02/18 07:39 77 18 97 Room Air 21 11/02/18 07:39 Room Air 21 11/02/18 07:39 77 18 Room Air 21 11/02/18 04:00 97.9 75 20 139/87 (104) 96 11/02/18 02:12 Trach Collar 6.0 28 11/02/18 02:11 97 Trach Collar 6.0 28 11/02/18 00:00 98.0 73 20 134/71 (92) 97 11/01/18 21:00 Room Air 11/01/18 20:00 98.4 79 20 134/78 (96) 96 11/01/18 19:24 Trach Collar 6.0 28 11/01/18 19:23 98 Trach Collar 6.0 28 11/01/18 19:19 80 17 Trach Collar 6.0 28 11/01/18 16:00 97.2 80 20 138/85 (102) 97 11/01/18 12:00 97.2 89 20 122/88 (99) 96 11/01/18 11:31 Trach Collar 6.0 28 11/01/18 11:31 96 Trach Collar 6.0 28 Intake and Output 11/01/18 11/02/18 19:00 07:00 Intake Total 120 ml 120 ml Balance 120 ml 120 ml Intake Oral 120 ml IV Total 120 ml # Voids 4 2 General Appearance: WD/WN HEENT: status post trach Respiratory/Chest: lungs clear Breasts: no masses Cardiovascular: normal peripheral pulses Abdomen: normal bowel sounds, no organomegaly Extremities: no cyanosis Skin: no lesions Microbiology Date/Time Source Procedure Growth Status 10/31/18 05:00 Sputum Gram Stain - Final Complete 10/31/18 05:00 Sputum Sputum Culture - Final NORMAL UPPER RESPIRATORY CARI PRESENT Complete Laboratory Tests 11/02/18 04:50: White Blood Count 8.8, Red Blood Count 3.62L, Hemoglobin 10.9L, Hematocrit 31.8L , Mean Corpuscular Volume 88, Mean Corpuscular Hemoglobin 30.0, Mean Corpuscular Hemoglobin Concent 34.1, Red Cell Distribution Width 13.8, Platelet Count 275, Mean Platelet Volume 7.0, Neutrophils (%) (Auto) 68.4, Lymphocytes (% ) (Auto) 24.3, Monocytes (%) (Auto) 5.9, Eosinophils (%) (Auto) 0.9, Basophils ( %) (Auto) 0.4, Sodium Level 143, Potassium Level 3.7, Chloride Level 106, Carbon Dioxide Level 27, Anion Gap 10, Blood Urea Nitrogen 14, Creatinine 0.8, Estimat Glomerular Filtration Rate > 60, Glucose Level 93, Calcium Level 8.4L, Ionized Calcium (Measured) 0.99L, Phosphorus Level 5.4H, Magnesium Level 1.9, Total Bilirubin 0.3, Aspartate Amino Transf (AST/SGOT) 20, Alanine Aminotransferase (ALT/SGPT) 30, Alkaline Phosphatase 100, Total Protein 7.9, Albumin 3.4, Globulin 4.5, Albumin/Globulin Ratio 0.8L Current Medications Medications (Trade) Dose Ordered Sig/Rico Route PRN Reason Start Time Stop Time Status Last Admin Dose Admin Albuterol/ Ipratropium (Albuterol/ Ipratropium) 3 ml Q4H PRN HHN dyspnea 10/30/18 13:15 11/04/18 13:14 11/02/18 07:39 Calcitriol (Rocaltrol) 0.5 mcg BID ORAL 11/01/18 18:00 12/01/18 17:59 11/02/18 08:40 Calcium Carbonate (Os-Den) 2,500 mg THREE TIMES A DAY ORAL 10/31/18 09:00 11/30/18 08:59 11/02/18 08:41 Calcium Gluconate 1 gm/Sodium Chloride 120 ml @ 240 mls/hr Q6HR IVPB 10/31/18 18:00 11/30/18 11:59 11/02/18 05:48 Dextrose (Dextrose 50%) 25 ml Q30M PRN IV Hypoglycemia 10/30/18 13:15 11/29/18 13:14 Dextrose (Dextrose 50%) 50 ml Q30M PRN IV Hypoglycemia 10/30/18 13:15 11/29/18 13:14 Ergocalciferol (Drisdol) 50,000 intlu QWEEK ORAL 10/31/18 13:00 11/30/18 12:59 10/31/18 14:36 Famotidine (Pepcid) 20 mg BID ORAL 11/01/18 09:00 12/01/18 08:59 11/02/18 08:40 Heparin Sodium (Porcine) (Heparin 5000 units/ml) 5,000 units EVERY 12 HOURS SUBQ 10/30/18 21:00 11/29/18 20:59 11/01/18 20:33 Levothyroxine Sodium (Synthroid) 125 mcg ACBREAKFAST ORAL 11/02/18 06:30 11/30/18 06:29 11/02/18 05:48 Lorazepam (Ativan 2mg/ml 1ml) 0.5 mg Q4H PRN IV For Anxiety 10/30/18 13:15 11/06/18 13:14 Morphine Sulfate (Morphine Sulfate) 2 mg Q4H PRN IVP severe pain 7-10 10/30/18 20:15 11/06/18 13:14 Nitroglycerin (Ntg) 0.4 mg Q5M X 3 DOSES PRN SL Prn Chest Pain 10/30/18 13:15 11/29/18 13:14 Ondansetron HCl (Zofran) 4 mg Q6H PRN IVP Nausea & Vomiting 10/30/18 13:15 11/29/18 13:14 Promethazine HCl/ Codeine (Phenergan with Codeine) 5 ml Q6H PRN ORAL cough 10/30/18 13:15 11/29/18 13:14 Temazepam (Restoril) 15 mg HSPRN PRN ORAL Insomnia 10/30/18 13:15 11/06/18 13:14 Jorge Borjas MD November 02, 2018 10:48
--- NOTE | 2018-11-02 11:38 | Nephrology Progress Note ---
Assessment/Plan Problem List: (1) Hypocalcemia (2) Post-surgical hypothyroidism (3) Thyroid cancer (4) Post-surgical hypoparathyroidism (5) Tracheostomy in place (6) Anemia Assessment s/p Throat surgery for thyroid cancer HypoParathyroidism HypoCalcemia Tracheostomy in place Anemia Plan IV Den gluc down to Q8 increase PO Ca QID PO Vit D 25 & 1,25 monitor Ca Phos Mag per orders Subjective ROS Limited/Unobtainable: No Constitutional: Reports: other - stronger Objective Objective Last 24 Hour Vital Signs Date Time Temp Pulse Resp B/P (MAP) Pulse Ox O2 Delivery O2 Flow Rate FiO2 11/02/18 08:16 Room Air 11/02/18 08:00 98.2 82 20 119/79 (92) 96 11/02/18 07:39 97 21 11/02/18 07:39 77 18 97 Room Air 21 11/02/18 07:39 Room Air 21 11/02/18 07:39 77 18 Room Air 21 11/02/18 04:00 97.9 75 20 139/87 (104) 96 11/02/18 02:12 Trach Collar 6.0 28 11/02/18 02:11 97 Trach Collar 6.0 28 11/02/18 00:00 98.0 73 20 134/71 (92) 97 11/01/18 21:00 Room Air 11/01/18 20:00 98.4 79 20 134/78 (96) 96 11/01/18 19:24 Trach Collar 6.0 28 11/01/18 19:23 98 Trach Collar 6.0 28 11/01/18 19:19 80 17 Trach Collar 6.0 28 11/01/18 16:00 97.2 80 20 138/85 (102) 97 11/01/18 12:00 97.2 89 20 122/88 (99) 96 Intake and Output 11/01/18 11/02/18 19:00 07:00 Intake Total 120 ml 120 ml Balance 120 ml 120 ml Intake Oral 120 ml IV Total 120 ml # Voids 4 2 Current Medications Medications (Trade) Dose Ordered Sig/Rico Route PRN Reason Start Time Stop Time Status Last Admin Dose Admin Albuterol/ Ipratropium (Albuterol/ Ipratropium) 3 ml Q4H PRN HHN dyspnea 10/30/18 13:15 11/04/18 13:14 11/02/18 07:39 Calcitriol (Rocaltrol) 0.5 mcg BID ORAL 11/01/18 18:00 12/01/18 17:59 11/02/18 08:40 Calcium Carbonate (Os-Den) 2,500 mg THREE TIMES A DAY ORAL 10/31/18 09:00 11/30/18 08:59 11/02/18 08:41 Calcium Gluconate 1 gm/Sodium Chloride 120 ml @ 240 mls/hr Q6HR IVPB 10/31/18 18:00 11/30/18 11:59 11/02/18 05:48 Dextrose (Dextrose 50%) 25 ml Q30M PRN IV Hypoglycemia 10/30/18 13:15 11/29/18 13:14 Dextrose (Dextrose 50%) 50 ml Q30M PRN IV Hypoglycemia 10/30/18 13:15 11/29/18 13:14 Ergocalciferol (Drisdol) 50,000 intlu QWEEK ORAL 10/31/18 13:00 11/30/18 12:59 10/31/18 14:36 Famotidine (Pepcid) 20 mg BID ORAL 11/01/18 09:00 12/01/18 08:59 11/02/18 08:40 Heparin Sodium (Porcine) (Heparin 5000 units/ml) 5,000 units EVERY 12 HOURS SUBQ 10/30/18 21:00 11/29/18 20:59 11/01/18 20:33 Levothyroxine Sodium (Synthroid) 125 mcg ACBREAKFAST ORAL 11/02/18 06:30 11/30/18 06:29 11/02/18 05:48 Lorazepam (Ativan 2mg/ml 1ml) 0.5 mg Q4H PRN IV For Anxiety 10/30/18 13:15 11/06/18 13:14 Morphine Sulfate (Morphine Sulfate) 2 mg Q4H PRN IVP severe pain 7-10 10/30/18 20:15 11/06/18 13:14 Nitroglycerin (Ntg) 0.4 mg Q5M X 3 DOSES PRN SL Prn Chest Pain 10/30/18 13:15 11/29/18 13:14 Ondansetron HCl (Zofran) 4 mg Q6H PRN IVP Nausea & Vomiting 10/30/18 13:15 11/29/18 13:14 Promethazine HCl/ Codeine (Phenergan with Codeine) 5 ml Q6H PRN ORAL cough 10/30/18 13:15 11/29/18 13:14 Temazepam (Restoril) 15 mg HSPRN PRN ORAL Insomnia 10/30/18 13:15 11/06/18 13:14 Laboratory Tests 11/02/18 04:50: White Blood Count 8.8, Red Blood Count 3.62L, Hemoglobin 10.9L, Hematocrit 31.8L , Mean Corpuscular Volume 88, Mean Corpuscular Hemoglobin 30.0, Mean Corpuscular Hemoglobin Concent 34.1, Red Cell Distribution Width 13.8, Platelet Count 275, Mean Platelet Volume 7.0, Neutrophils (%) (Auto) 68.4, Lymphocytes (% ) (Auto) 24.3, Monocytes (%) (Auto) 5.9, Eosinophils (%) (Auto) 0.9, Basophils ( %) (Auto) 0.4, Sodium Level 143, Potassium Level 3.7, Chloride Level 106, Carbon Dioxide Level 27, Anion Gap 10, Blood Urea Nitrogen 14, Creatinine 0.8, Estimat Glomerular Filtration Rate > 60, Glucose Level 93, Calcium Level 8.4L, Ionized Calcium (Measured) 0.99L, Phosphorus Level 5.4H, Magnesium Level 1.9, Total Bilirubin 0.3, Aspartate Amino Transf (AST/SGOT) 20, Alanine Aminotransferase (ALT/SGPT) 30, Alkaline Phosphatase 100, Total Protein 7.9, Albumin 3.4, Globulin 4.5, Albumin/Globulin Ratio 0.8L Height (Feet): 5 Height (Inches): 2.00 Weight (Pounds): 140 General Appearance: no apparent distress EENT: other - trach Cardiovascular: normal rate Respiratory/Chest: lungs clear Abdomen: soft Franklin Gardner MD November 02, 2018 11:38
[2018-11-02 12:00] VITALS: BP 127/90
[2018-11-02] MEDS ORDERED: Docusate 100mg cap ORAL SCH (13:00)
--- NOTE | 2018-11-02 13:09 | Surgery Progress Note ---
Surgery Progress Note Subjective Additional Comments no acute events. states she feels much better. symptoms resolved. tolerating diet. ambulatory. respiratory stable labs improved. family at bedside all questions answered Objective Last 24 Hour Vital Signs Date Time Temp Pulse Resp B/P (MAP) Pulse Ox O2 Delivery O2 Flow Rate FiO2 11/02/18 12:00 98.0 85 21 127/90 (102) 97 11/02/18 08:16 Room Air 11/02/18 08:00 98.2 82 20 119/79 (92) 96 11/02/18 07:39 97 21 11/02/18 07:39 77 18 97 Room Air 21 11/02/18 07:39 Room Air 21 11/02/18 07:39 77 18 Room Air 21 11/02/18 04:00 97.9 75 20 139/87 (104) 96 11/02/18 02:12 Trach Collar 6.0 28 11/02/18 02:11 97 Trach Collar 6.0 28 11/02/18 00:00 98.0 73 20 134/71 (92) 97 11/01/18 21:00 Room Air 11/01/18 20:00 98.4 79 20 134/78 (96) 96 11/01/18 19:24 Trach Collar 6.0 28 11/01/18 19:23 98 Trach Collar 6.0 28 11/01/18 19:19 80 17 Trach Collar 6.0 28 11/01/18 16:00 97.2 80 20 138/85 (102) 97 I&O Intake and Output 11/01/18 11/02/18 19:00 07:00 Intake Total 120 ml 120 ml Balance 120 ml 120 ml Intake Oral 120 ml IV Total 120 ml # Voids 4 2 Dressing: dry Wound: clean Drains: none Cardiovascular: RSR Respiratory: clear Abdomen: soft, flat, non-tender, present bowel sounds Extremities: no edema, no tenderness, no cyanosis Laboratory Tests Test 11/02/18 04:50 White Blood Count 8.8 K/UL (4.8-10.8) Red Blood Count 3.62 M/UL (4.20-5.40) L Hemoglobin 10.9 G/DL (12.0-16.0) L Hematocrit 31.8 % (37.0-47.0) L Mean Corpuscular Volume 88 FL (80-99) Mean Corpuscular Hemoglobin 30.0 PG (27.0-31.0) Mean Corpuscular Hemoglobin Concent 34.1 G/DL (32.0-36.0) Red Cell Distribution Width 13.8 % (11.6-14.8) Platelet Count 275 K/UL (150-450) Mean Platelet Volume 7.0 FL (6.5-10.1) Neutrophils (%) (Auto) 68.4 % (45.0-75.0) Lymphocytes (%) (Auto) 24.3 % (20.0-45.0) Monocytes (%) (Auto) 5.9 % (1.0-10.0) Eosinophils (%) (Auto) 0.9 % (0.0-3.0) Basophils (%) (Auto) 0.4 % (0.0-2.0) Sodium Level 143 MMOL/L (136-145) Potassium Level 3.7 MMOL/L (3.5-5.1) Chloride Level 106 MMOL/L (98-107) Carbon Dioxide Level 27 MMOL/L (21-32) Anion Gap 10 mmol/L (5-15) Blood Urea Nitrogen 14 mg/dL (7-18) Creatinine 0.8 MG/DL (0.55-1.30) Estimat Glomerular Filtration Rate > 60 mL/min (>60) Glucose Level 93 MG/DL (74-106) Calcium Level 8.4 MG/DL (8.5-10.1) L Ionized Calcium (Measured) 0.99 mmol/L (1.10-1.35) L Phosphorus Level 5.4 MG/DL (2.5-4.9) H Magnesium Level 1.9 MG/DL (1.8-2.4) Total Bilirubin 0.3 MG/DL (0.2-1.0) Aspartate Amino Transf (AST/SGOT) 20 U/L (15-37) Alanine Aminotransferase (ALT/SGPT) 30 U/L (12-78) Alkaline Phosphatase 100 U/L (46-116) Total Protein 7.9 G/DL (6.4-8.2) Albumin 3.4 G/DL (3.4-5.0) Globulin 4.5 g/dL Albumin/Globulin Ratio 0.8 (1.0-2.7) L Plan Problems: (1) Hypoparathyroidism Assessment & Plan: s/p thyroidectomy 2 parathyroids in path 2 remain per report but non functional thus far presented with symptomatic hypocalcemia. given replacement and symptoms improved oral Rx given for discharge reviewed with family has follow up with Dr. Alfonso her surgeon on Tuesday spoke to him and he is aware of care plan and f/u d/c home today (2) Tracheostomy in place (3) Hypocalcemia Selvin Sanchez November 02, 2018 13:09
[2018-11-02] MEDS ORDERED: Calcium Gluconate 10% 1 GM in NS 110 ML IVPB SCH (14:00)
--- NOTE | 2018-11-02 15:18 | General Progress Note ---
Assessment/Plan Status: unchanged Assessment/Plan: Assessment and Recs: # Status post thyroid cancer resection, with parathyroid resection and now with Hypocalcemia, also s/p Tracheostomy in place --> as per surgical evjaida, Edin Granger ) --> obtain pathology report of the path tissue --> is s/p calcium gluconate as per neprho --> at 6 mo intervals needs TSH, thyroglobulin check and potentially i-131 eval --> endo followup as well # Anemia of chronic disease due to underlying chronic medical issues, multifactorial --> Anemia workup has been reviewed, no iron needed --> No evidence of hemolysis is noted, peripheral smear has been reviewed. --> Hgb goal >7. Transfuse prn. --> Epogen or iron at this time is not particularly indicated --> Medications have been reviewed --> evaluate with Gi team prn --> transfuse if hgb is < 7 (will trend CBC daily) --> low threshold for gi evaluation in case has occult + # Hypoparathyroidism # Agitation improved with ativan # status post tracheostomy site. There is no more respiratory distress. --> as per pulm/surg The timing of this note does not necessarily reflect the time of the patient was seen. Greatly appreciate consultation! Subjective Constitutional: Denies: no symptoms, chills, diaphoresis, fever, malaise, weakness, other HEENT: Denies: no symptoms, eye pain, blurred vision, tearing, double vision, ear pain, ear discharge, nose pain, nose congestion, throat pain, throat swelling, mouth pain, mouth swelling, other Cardiovascular: Denies: no symptoms, chest pain, edema, irregular heart rate, lightheadedness, palpitations, syncope, other Respiratory: Denies: no symptoms, cough, orthopnea, shortness of breath, SOB with excertion, SOB at rest, sputum, stridor, wheezing, other Neurologic/Psychiatric: Denies: no symptoms, anxiety, depressed, emotional problems, headache, numbness, paresthesia, pre-existing deficit, seizure, tingling, tremors, weakness, other Endocrine: Denies: no symptoms, excessive sweating, flushing, intolerance to cold, intolerance to heat, increased hunger, increased thirst, increased urine, unexplained weight gain, unexplained weight loss, other Hematologic/Lymphatic: Denies: no symptoms, anemia, easy bleeding, easy bruising, other Allergies: Coded Allergies: No Known Allergies (Unverified , 10/30/18) Subjective 11/02: no events is noted, no fc, no bleeding reported Objective Last 24 Hour Vital Signs Date Time Temp Pulse Resp B/P (MAP) Pulse Ox O2 Delivery O2 Flow Rate FiO2 11/02/18 12:00 98.0 85 21 127/90 (102) 97 11/02/18 08:16 Room Air 11/02/18 08:00 98.2 82 20 119/79 (92) 96 11/02/18 07:39 97 21 11/02/18 07:39 77 18 97 Room Air 21 11/02/18 07:39 Room Air 21 11/02/18 07:39 77 18 Room Air 21 11/02/18 04:00 97.9 75 20 139/87 (104) 96 11/02/18 02:12 Trach Collar 6.0 28 11/02/18 02:11 97 Trach Collar 6.0 28 11/02/18 00:00 98.0 73 20 134/71 (92) 97 11/01/18 21:00 Room Air 11/01/18 20:00 98.4 79 20 134/78 (96) 96 11/01/18 19:24 Trach Collar 6.0 28 11/01/18 19:23 98 Trach Collar 6.0 28 11/01/18 19:19 80 17 Trach Collar 6.0 28 11/01/18 16:00 97.2 80 20 138/85 (102) 97 Intake and Output 11/01/18 11/02/18 18:59 06:59 Intake Total 120 ml 120 ml Balance 120 ml 120 ml Intake Oral 120 ml IV Total 120 ml # Voids 4 2 Laboratory Tests 11/02/18 04:50: White Blood Count 8.8, Red Blood Count 3.62L, Hemoglobin 10.9L, Hematocrit 31.8L , Mean Corpuscular Volume 88, Mean Corpuscular Hemoglobin 30.0, Mean Corpuscular Hemoglobin Concent 34.1, Red Cell Distribution Width 13.8, Platelet Count 275, Mean Platelet Volume 7.0, Neutrophils (%) (Auto) 68.4, Lymphocytes (% ) (Auto) 24.3, Monocytes (%) (Auto) 5.9, Eosinophils (%) (Auto) 0.9, Basophils ( %) (Auto) 0.4, Sodium Level 143, Potassium Level 3.7, Chloride Level 106, Carbon Dioxide Level 27, Anion Gap 10, Blood Urea Nitrogen 14, Creatinine 0.8, Estimat Glomerular Filtration Rate > 60, Glucose Level 93, Calcium Level 8.4L, Ionized Calcium (Measured) 0.99L, Phosphorus Level 5.4H, Magnesium Level 1.9, Total Bilirubin 0.3, Aspartate Amino Transf (AST/SGOT) 20, Alanine Aminotransferase (ALT/SGPT) 30, Alkaline Phosphatase 100, Total Protein 7.9, Albumin 3.4, Globulin 4.5, Albumin/Globulin Ratio 0.8L Height (Feet): 5 Height (Inches): 2.00 Weight (Pounds): 140 Objective Sp02 EP Interpretation: reviewed, normal General Appearance: alert, moderate distress Eyes: bilateral eye normal inspection, bilateral eye PERRL ENT: normal pharynx Neck: surgical scars, ++ tracheotomy Respiratory: chest non-tender, lungs clear, normal BSs Cardiovascular: no edema, tachycardia, 1+ radial (L) Gastrointestinal: non tender, soft, decreased bowel sounds Genitourinary: no CVA tenderness MSK: back normal, no calf tenderness Neurologic: alert, health center assistant III-XII nml as tested, DTRs symmetric Skin: other - Surgical scars Trey Rehman MD November 02, 2018 15:18
--- NOTE | 2018-11-03 09:47 | Discharge Summary ---
Discharge Summary Discharge Summary _ DATE OF ADMISSION: 10/30/2018 DATE OF DISCHARGE: 11/02/2018 CONSULTANTS: Dr. Jorge Echeverria BRIEF HOSPITAL COURSE: Patient is a 63-year-old female who lives at home, presented to ED due to increased weakness, dyspnea and respiratory distress. Patient was transported by EMS. Patient complained of left arm pain. She was extremely anxious and was unable to give full history. History was obtained from surgeon. She apparently recently underwent neck dissection for thyroid CA. 2 of her parathyroids were retained. Apparently they were nonfunctional. Because of extensive resection, tracheostomy was left in place. At discharge she was discharged on calcitonin and calcium. According to the surgeon, she had been noncompliant with medications. She denied any fever or productive cough. She had mild phlegm production with the tracheostomy. She denied chest pain. She complained of left arm pain. There was no nausea, vomiting, diarrhea or dysuria. On evaluation at ED, blood work did not show any leukocytosis. Hemoglobin 10.6 , hematocrit 31.8. Sodium 144, potassium 4.1. Calcium was low at 6.4. Troponin negative. BUN was elevated to 20, creatinine 0.9. Urinalysis showed + 1 leukocyte esterase, 0-2 RBC, 0-2 WBC. Urine toxicology screen was negative. EKG showed normal sinus rhythm. Chest x-ray did not show any acute process. He was given calcium gluconate. He was admitted for evaluation of hypocalcemia. She was given IV and p.o. calcium supplements. She was given vitamin D. She was given Solu-Medrol. She was placed on nebulizer treatment. Senior Storage Engineer was consulted. Calcitriol was increased to 0.5 mcg twice daily. She was given calcium 2500 mg 3 times daily. TSH was elevated. Levothyroxine was increased to 125 mcg every morning. WBC increased to 13. ID was consulted. Patient was observed off antibiotics. Leukocytosis possibly due to steroids. Sputum culture showed normal upper respiratory ji. WBC normalized. Patient was saturating well on room air via trach collar. Calcium level was up trending. Patient was discharged home. FINAL DIAGNOSES: Symptomatic hypocalcemia Status post thyroid CA resection, with parathyroid resection Status post tracheostomy in place Anemia of chronic disease Post surgical hypoparathyroidism Postsurgical hypothyroidism DISPOSITION: Patient was discharged home. DISCHARGE MEDICATIONS: Refer to Discharge Medication List. DISCHARGE INSTRUCTIONS: Follow-up in a week. Follow-up with Dr. Alfonso on Tuesday , 11/06/2018. I have been assigned to complete a discharge summary on this account, I was not involved with the patient's management. Yuki Murrieta NP November 03, 2018 09:47
== END 2018-11-02 13:03 | disposition home or self-care (01) | DRG 424 ==
LOC: EDBD 08:59 → EMR 10:20 → 2E 11:18 → EDBEDREQ 12:12 → 2E 16:34
DX: E89.2 Postprocedural hypoparathyroidism (principal); Z43.0 Encounter for attention to tracheostomy; E83.51 Hypocalcemia; D64.9 Anemia, unspecified; N39.0 Urinary tract infection, site not specified; I10 Essential (primary) hypertension; E89.0 Postprocedural hypothyroidism; Z85.850 Personal history of malignant neoplasm of thyroid; D63.8 Anemia in other chronic diseases classified elsewhere; Z91.14 Patient's other noncompliance with medication regimen
CPT/HCPCS: 36415; 71045; 80053; 80061; 80307; 81003; 82330; 82550; 82607; 82728; 82746; 83540; 83550; 83735; 83880; 83970; 84100; 84439; 84443; 84484; 84550; 85025; 85610; 85730; 86140; 87070; 87205; 93005; 94640; 94664; 94760; 96361; 96365; 96366; 96375; 99291; J7620; J8499